=== PATIENT | female | born 2000 | race Caucasian/White ===

== ENCOUNTER 2019-11-24 07:33 | Emergency (ER) | payer OTHER, SELFPAY ==
--- NOTE | ~2019-11-24 | CT_ITS ---
EXAMINATION: CT abdomen pelvis wo con DATE: 11/24/2019 08:02 INDICATION: Right flank pain TECHNIQUE: Computed tomography (CT) of the abdomen and pelvis was performed without intravenous contr ast. The dose-length product (DLP) was 171.66 mGy-cm. Automated exposure control and iterative recons truction technique were employed. COMPARISON: None FINDINGS: The lung bases are clear. The heart size is normal. The liver, spleen, pancreas, gallbladde r, and adrenal glands are normal. There is a 3 mm nonobstructing stone of the left kidney. There is m ild right hydroureteronephrosis. The right ureter is difficult to track due to a possibility of abdom inal fat however, a 3 mm calcification of the right pelvis appears to reside within the distal ureter just before the ureterovesicular junction. No pathologically enlarged abdominal or pelvic lymph node s are identified. There is no free intraperitoneal gas or evidence of bowel obstruction. The visualiz ed osseous structures are unremarkable. IMPRESSION: 1. Mild right hydroureteronephrosis with suspected 3 mm stone in the distal right ureter. 2. Nonobstructing left nephrolithiasis. Reviewed, dictated and finalized at location B. IMPRESSION: 1. Mild right hydroureteronephrosis with suspected 3 mm stone in the distal rig ht ureter. 2. Nonobstructing left nephrolithiasis.
--- NOTE | 2019-11-24 07:38 | ED.ABDPAIN ---
HPI - Abdominal Pain General Chief Complaint: Abdominal Pain Stated Complaint: flank pain Time Seen by Provider: 11/24/19 07:35 History of Present Illness HPI narrative: RLQ and right flank pain since yesterday. Severe. Worse with movement. Associated with vomiting x1. She has never had this pain before. Related Data Allergies Allergy/AdvReac Type Severity Reaction Status Date / Time No Known Allergies Allergy Verified 11/24/19 07:46 Review of Systems Review of Systems: All systems reviewed & are unremarkable except as noted in HPI and below Constitutional: Constitutional: Denies chills and Denies fever(s) Cardiovascular: Cardiovascular: Denies chest pain Respiratory: Respiratory: Denies dyspnea Gastrointestinal: Gastrointestinal: Reports abdominal pain, Denies constipation, Denies diarrhea, Reports nausea and Reports vomiting Genitourinary: Genitourinary: Denies hematuria and Denies dysuria [facility] Family History Family History Mother Depression Sibling Allergies Grandparent CHF (congestive heart failure) Colon cancer Grandparent IBS (irritable bowel syndrome) Migraine Social History Social History (Updated 11/24/19 @ 10:44 by Dale lE MD) Smoking status: Never smoker Exam Const: General: healthy appearing and alert Orientation/consciousness: patient oriented x3 Other: mild distress HENMT: Head: normal to inspection Neck: Neck: normal visual inspection and no lymphadenopathy Chest: Chest palpation & inspection: no tenderness Resp: Effort & Inspection: normal respiratory effort Auscultation: clear to auscultation bilaterally, no rales, no rhonchi and no wheezes Cardio: Jugular venous distension: no JVD Rate: regular rate Rhythm: regular rhythm Heart sounds: no murmurs GI: Inspection: non-distended GI Palp: Yes Soft to palpation and No Tenderness to palpation present (GI) Skin: General skin exam: normal color Neuro: General: patient oriented x3 and moves all extremities Speech: normal speech Extrem: General: no edema Psych: Appearance: well kempt Affect: normal affect Course Vital Signs Vital signs: Vital Signs Temperature 36.6 C 11/24/19 07:42 Pulse Rate 78 11/24/19 07:42 Respiratory Rate 18 11/24/19 07:42 Blood Pressure 123/92 H 11/24/19 07:42 Pulse Oximetry 99 11/24/19 07:42 Temperature 36.6 C 11/24/19 07:42 Pulse Rate 78 11/24/19 09:33 Respiratory Rate 18 11/24/19 09:33 Blood Pressure 126/73 11/24/19 09:33 Pulse Oximetry 100 11/24/19 09:33 MDM - Abdominal Pain MDM Narrative Medical decision making narrative: small distal stone with mild hydro. Will plan to discharge with pain medications. Differential Diagnosis Differential diagnosis: Likely acute appendicitis, calculus of kidney and constipation Medical Records Attestation: I reviewed the patient's medical records. Lab Data Attestation: I reviewed the patient's lab results. Result diagrams: 11/24/19 07:47 11/24/19 07:47 Labs: Lab Results 11/24/19 11/24/19 11/24/19 Range/Units 07:47 07:47 07:47 WBC 9.4 (4.5-10.0) K/mm3 RBC 4.78 (4.2-5.4) M/mm3 Hgb 13.1 (12.0-15.0) g/dL Hct 41.2 (37.0-47.0) % MCV 86.2 (80-100) fl MCH 27.4 (26-34) pg MCHC 31.8 L (32-36) g/dl RDW 13.6 (11.5-14.5) % Plt Count 312 (150-375) k/mm3 MPV 10.3 (7.4-10.4) fl Immature Gran % (Auto) 0.2 (0-0.5) % Neut % (Auto) 47.6 (45.5-73.1) % Lymph % (Auto) 44.7 H (18.3-44.2) % Falls % (Auto) 5.7 (2.6-8.5) % Eos % (Auto) 1.4 (0-4.4) % Baso % (Auto) 0.4 (0.2-1.2) % Lymph # (Auto) 4.19 H (0.9-3.2) K/mm3 Falls # (Auto) 0.5 (0.1-0.6) K/mm3 Eos # (Auto) 0.1 (0-0.3) K/mm3 Baso # (Auto) 0.0 (0.0-0.1) K/mm3 Abs Immat Gran (auto) 0.02 (0.00-0.031) K/mm3 Absolute Neuts (auto) 4.5 (1.3-6.7) K/mm3 Absolute Nucle
[2019-11-24 07:42] VITALS: BP 123/92; PULSE 78; RESP 18; TEMP 36.6; O2SAT 99
[2019-11-24 07:54] LABS: Basophils Percent Auto 0.4 % (0.2-1.2); Eosinophils Absolute Auto 0.1 K/mm3 (0-0.3); Eosinophils Percent Auto 1.4 % (0-4.4); Hematocrit 41.2 % (37.0-47.0); Hemoglobin 13.1 g/dL (12.0-15.0); Immature Granulocyte Absolute 0.02 K/mm3 (0.00-0.031); Immature Granulocyte Percent A 0.2 % (0-0.5); Lymphocytes Absolute Auto 4.19 K/mm3 (0.9-3.2); Lymphocytes Percent Auto 44.7 % (18.3-44.2); Mean Corpuscular HGB Conc 31.8 g/dl (32-36); Mean Corpuscular Hemoglobin 27.4 pg (26-34); Mean Corpuscular Volume 86.2 fl (80-100); Mean Platelet Volume 10.3 fl (7.4-10.4); Monocytes Absolute Auto 0.5 K/mm3 (0.1-0.6); Monocytes Percent Auto 5.7 % (2.6-8.5); Neutrophils Absolute Auto 4.5 K/mm3 (1.3-6.7); Neutrophils Percent Auto 47.6 % (45.5-73.1); Platelet Count Result 312 k/mm3 (150-375); Red Blood Count 4.78 M/mm3 (4.2-5.4); Red Cell Distribution Width 13.6 % (11.5-14.5); White Blood Count 9.4 K/mm3 (4.5-10.0)
[2019-11-24 08:00] LABS: Add Urine Microscopic? YES; Appearance Urine Cloudy (Clear); Bacteria Urine Trace /hpf; Bilirubin Urine Negative (Negative); Blood Urine 3+ (Negative); Color Urine Yellow (Yellow); Glucose Urine UA Negative (Negative); Ketones Urine Negative (Negative); Leukocyte Esterase Ur Negative LEU/UL (Negative); Mucus Urine Heavy /lpf; Nitrate Urine Negative (Negative); Protein Urine 1+ mg/dL (Negative); RBC Urine >75 /hpf (0-2); Specific Grav Ur 1.024 (1.001-1.035); Squamous Epithelial Cell Urine Many /hpf (Few); Urobilinogen Urine Negative mg/dL (<2.0); WBC Urine 31-50 /hpf
[2019-11-24 08:06] LABS: Alanine Aminotransferase 16 U/L (4-35); Albumin Level 4.6 g/dL (3.5-5.1); Alkaline Phosphatase 74 U/L (38-126); Anion Gap 12.8 mmol/L (7-16); Aspartate Amino Transferase 22 U/L (14-36); Bilirubin,Total 0.7 mg/dL (0.2-1.3); Blood Urea Nitrogen 14 mg/dL (7-17); Calcium 9.4 mg/dL (8.4-10.2); Carbon Dioxide 24 mmol/L (22-30); Chloride 105 mmol/L (98-107); Estimated CRCL calculation 83 ml/min; Estimated Glomerular Filt Rate > 60; Glucose 124 mg/dL (65-105); Lipase 37 U/L (23-300); Potassium 3.8 mmol/L (3.4-5.0); Sodium 138 mmol/L (137-145)
[2019-11-24] MEDS: SODIUM CHLORIDE 0.9% IV 1,000 ML 999 ML IV CONT (08:12)
[2019-11-24] MEDS: KETOROLAC 30 MG/ML VIAL (*BKC) IV PUSH (08:12)
[2019-11-24] MEDS: TAMSULOSIN HCL 0.4 MG CAPSULE PO (08:23)
[2019-11-24 09:33] VITALS: BP 126/73; PULSE 78; RESP 18; O2SAT 100
== END 2019-11-24 09:34 | disposition home or self-care (01) ==
PROVIDERS: Emergency Provider Emergency Medicine; PCP Internal Medicine
DX: N13.2 Hydronephrosis with renal and ureteral calculous obstruction (principal)
CPT/HCPCS: 36415; 74176; 80053; 81001; 81025; 83690; 85025; 87086; 96361; 96374; 96375; 99284; A9270; J1885; J3010; J7030

== ENCOUNTER 2021-09-27 09:55 | Emergency (ER) | payer BC, SELFPAY ==
[2021-09-27 10:11] VITALS: BP 102/58; PULSE 109; RESP 18; TEMP 37.3; O2SAT 99
[2021-09-27 12:23] LABS: SARS-CoV-2 RNA PCR Negative
[2021-09-27 13:12] LABS: Monoscreen Negative (Negative); Positive Monotest Control Positive (Positive)
[2021-09-27 13:13] LABS: Negative Monotest Control Negative (Negative)
[2021-09-27] MEDS: DEXAMETHASONE 2 MG TABLET 6 MG PO (13:53)
[2021-09-27] MEDS: DEXAMETHASONE 4 MG TABLET PO (13:53)
--- NOTE | 2021-09-27 18:12 | ED.URI ---
HPI - URI/Sore Throat General Chief Complaint: Upper Respiratory Infection Stated Complaint: Fever Time Seen by Provider: 09/27/21 11:36 Source: patient Mode of arrival: ambulatory Limitations: no limitations History of Present Illness HPI Narrative: 20-year-old female presents today with complaints of headache, sore throat, and fevers at home that started 4 days ago Patient recently seen urgent care and given Augmentin for an ear infection. Patient states she has noted no improvement in her symptoms at this time. Patient has concerns that she is diagnosed with pharyngitis about a month ago and was worried she had it again. Related Data Allergies Allergy/AdvReac Type Severity Reaction Status Date / Time No Known Allergies Allergy Verified 11/24/19 07:46 Review of Systems Constitutional: Constitutional: Reports as per HPI Eyes: Eyes: Reports no additional eye complaints ENT: Reports as per HPI Cardiovascular: Cardiovascular: Reports no additional cardiovascular complaints Respiratory: Respiratory: Reports no additional respiratory complaints Gastrointestinal: Gastrointestinal: Reports no additional gastrointestinal complaints Genitourinary: Genitourinary: Reports no additional female genitourinary complaints Musculoskeletal: Musculoskeletal: Reports no additional musculoskeletal complaints Neurologic: Reports system reviewed and no additional complaints, except as documented Psychiatric: Psychiatric: Reports no additional psychiatric complaints Allergic/Immunologic: Allergic/Immunologic: Reports no additional allergic/immunologic complaints [facility] Family History Family History Mother Depression Sibling Allergies Grandparent CHF (congestive heart failure) Colon cancer Grandparent IBS (irritable bowel syndrome) Migraine Social History Social History Smoking status: Never smoker Exam Const: General: healthy appearing and no acute distress Nutritional Appearance: well nourished Orientation/consciousness: patient oriented x3 Limitations: no limitations HENMT: Head: normal to inspection Ears: external ears normal and TM's normal bilaterally General nose exam: Normal external nose present and Normal nares present Face and sinus: normal facial exam Mouth: Yes Normal oral and palatal mucosa present and Yes Abnormal oral and palatal mucosa present Throat: posterior oropharynx abnormal (Posterior oropharynx with erythema, tonsils +2-3 with exudate) and uvula midline Eyes: Conjunctivae: conjunctivae normal Pupils: Equal, round and reactive pupils present EOM: EOMs intact bilaterally Neck: Neck: normal visual inspection and no lymphadenopathy Chest: Chest palpation & inspection: normal inspection of the chest Resp: Effort & Inspection: normal respiratory effort Auscultation: clear to auscultation bilaterally Cardio: Rate: regular rate Rhythm: regular rhythm GI: GI Palp: Yes Soft to palpation and No Tenderness to palpation present (GI) Auscultation: normal bowel sounds Course Vital Signs Vital signs: Vital Signs Temperature 37.3 C 09/27/21 10:11 Pulse Rate 109 H 09/27/21 10:11 Respiratory Rate 18 09/27/21 10:11 Blood Pressure 102/58 L 09/27/21 10:11 Pulse Oximetry 99 09/27/21 10:11 Temperature 37.3 C 09/27/21 10:11 Pulse Rate 109 H 09/27/21 10:11 Respiratory Rate 18 09/27/21 10:11 Blood Pressure 102/58 L 09/27/21 10:11 Pulse Oximetry 99 09/27/21 10:11 MDM - URI/Sore Throat MDM Narrative Medical decision making narrative: 20-year-old HPI as noted. Patient with symptoms for 3 to 4 days. Patient has been on Augmentin for 2 days. Strep negative, influenza negative, COVID negative, and mono negative. Suspect viral pharyngitis. Instructed patient it is okay to continue antibiotics. Dose of oral steroids given here and patient instructed
== END 2021-09-27 13:55 | disposition home or self-care (01) ==
PROVIDERS: Emergency Provider Nurse Practitioner Family; PCP Family Medicine
DX: B34.9 Viral infection, unspecified (principal); Z20.822 Contact with and (suspected) exposure to COVID-19
CPT/HCPCS: 36415; 86308; 87081; 87804; 87880; 99283; C9803; J8540; U0003; U0005

== ENCOUNTER 2024-04-17 08:46 | Outpatient (CLI) | payer BC, SELFPAY ==
[2024-04-17 09:16] LABS: Alanine Aminotransferase 16 U/L (6-35); Aspartate Amino Transferase 26 U/L (14-36)
--- OUTSIDE RECORDS SUMMARY | 2024-04-24 21:42 | XMS_ITS | Encounter Summary ---
Author Organization [facility] Address [address] [place] [address]. [place] [address] [place] [address] Care Team Providers Care Five Piece Expansion Maker Hand Name Role Phone None, Provider Primary Care Provider Unavaila ble Reason for Visit * Reason Onset Date Comments ER F/U 11/29/2019 Encounter Details Date Type Department Care Team (Late st Contact Info) Description 11/29/2019 Telephone [facility] Medical [facility] Multispecialty Care - [facility] [address] [facility], [address] [place] [address] Pool Campbell MD [address] [place] [address] MCKENZIE JACKSON [id number] ER F/U Social History Tobacco Use Types Packs/Day Years Used Date Smoking Tobacco: Never Smokeless Tobacco: Never Alcohol Use Standard Drinks/Week Comments Never 0 (1 standard drink = 0.6 oz pur e alcohol) AUDIT-C Answer Date Recorded Frequency of Alcohol Consumption Never 11/26/2019 Average Number of Drinks Not on file 020 Frequency of Binge Drinking Not on file 05/2019 Comments No Sex and Gender Information Value Date Recorded Sex Assigned at Not on file Legal Sex Female 6:13 PM CDT Gender Identity Not on file Sexual Orientation Not on file COVID-19 Exposure Response Date Recorded In the last month, have you been in contact with someone who was confirmed or suspected to have Coronavirus / COVID-19? No / Unsure 11/26/2019 6:14 PM CDT documented as of this encounter Progress Notes * Kasie Mcadams MA - 11/29/2019 3:30 PM CDT The patient can see any provider that has first availability * Nandini Skinner - 11/29/2019 2:13 PM CDT Pt seen in ER 8-2 for kidney stone. Her mom is calling to see if pt needs to make f/u appt? She said pt is feeling better but isnt sureif she actually passed the stone. documented in this encounter Plan of Treatment Not on file documented as of this encounter Visit Diagnoses Not on filedocumented in this encounter Care Teams Five Piece Expansion Maker Hand Relationship Specialty Start Date End Date None, Provider, PCP - General 11/26/19 01/12/21 documented as of this encounter
--- OUTSIDE RECORDS SUMMARY | 2024-04-24 21:42 | XMS_ITS | Encounter Summary ---
Author Organization [facility] Address [address] [place] [address]. [place] [address] [place] [address] Care Team Providers Care Financial Sales Assistant Name Role Phone None, Provider Primary Care Provider Unavaila ble Reason for Visit * Reason Onset Date Comments Appointment Reminder 12/04/2019 Encounter Details Date Type Department Care Team (Late st Contact Info) Description 12/04/2019 Telephone [facility] Medical [facility] Multispecialty Care - [facility] [address] [facility], [address] [place] [address] Judith Kearney, APNP [id number] [address] Appointment Reminder Social History Tobacco Use Types Packs/Day Years [...] as of this encounter Progress Notes * Evy Tejeda MA - 12/04/2019 2:21 PM CDT LVM with patient regarding appt to reschedule or continue with appt. documented in this encounter Plan of Treatment Not on file documented as of this encounter Visit Diagnoses Not on filedocumented in this encounter Care Teams Financial Sales Assistant Relationship Specialty Start Date End Date None, Provider, PCP - General 11/26/19 01/12/21 documented as of this encounter
--- OUTSIDE RECORDS SUMMARY | 2024-04-24 21:42 | XMS_ITS | Encounter Summary ---
Author Organization [facility] Address [address] [place] [address]. [place] [address] [place] [address] Care Team Providers Care Electronic Coils Supervisor Name Role Phone None, Provider Primary Care Provider Unavaila ble Reason for Referral * Imaging (Emergency) - Closed Specialty Diagnoses / Procedures Referred By Rosalva t Referred To Contact RADIOLOGY Procedures CT ABD+PEL WO CON Regina Lanier MD [address] [address] Phone: tel: fax: Referral ID Status Reason Start Date Expiration Date Visits Re quested Visits Authorized [id number] Closed 11/26/2019 12/26/2020 1 1 Reason for Visit * Reason Comments Flank Pain Encounter Details Date Type Department Care Team (Late st Contact Info) Description 11/26/2019 7:57 PM CDT - 11/26/2019 11:[address] [facility] [place] [address] Regina Lanier MD [address] [id number] Flank Pain Discharge Disposition: Home or Self Care (Routine Discharge) Social History Tobacco Use Types Packs/Day Years Used Date Smoking Tobacco: Never Smokeless Tobacco: Never Alcohol Use Standard Drinks/Week Comments Never 0 (1 standard drink = 0.6 oz pur e alcohol) AUDIT-C Answer Date Recorded Frequency of Alcohol Consumption Never 11/26/2019 Average Number of Drinks Not on file 08/02/2 020 Frequency of Binge Drinking Not on [...] PM CDT documented as of this encounter Last Filed Vital Signs Vital Sign Reading Time Taken Comments Blood Pressure 113/75 11/26/2019 11:26 PM CDT Pulse 69 11/26/2019 11:26 PM CDT Temperature 36.3 ??C (97.4 ??F) 11/26/2019 6:29 PM CD T Respiratory Rate 14 11/26/2019 11:26 PM CDT Oxygen Saturation 97% 11/26/2019 11:26 PM CDT Inhaled Oxygen Concentration - - Weight 47.6 kg (105 lb) 11/26/2019 6:29 PM CDT Height 157.5 cm (5' 2 ) 11/26/2019 6:29 PM CDT Body Mass Index 19.2 11/26/2019 6:29 PM CDT documented in this encounter Discharge Instructions * Discharge Instructions* Regina Lanier MD - 11/26/2019 11:04 PM CDT Strain your urine to see if your stone passes. Return to ER if your pain is uncontrolled or you develop fever. * Attachments The following attachments cannot be sent through Care Everywhere. * Renal Colic Discharge Instructions ([place]) * How to Strain Your Urine ([place]) documented in this encounter Medications at Time of Discharge ketorolac 10 MG tablet Take 1 tablet (10 mg total) by mouth 4 (four) times daily as needed for Pain. 16 tablet 11/26/2019 0 ondansetron (ZOFRAN ODT) 4 MG disintegrating tablet Take 1 tablet (4 mg total) by mouth every 8 (eight) hours as needed for Nausea. 15 tablet 11/26/2019 1 documented as of this encounter ED Notes * Salome Solis RN - 11/26/2019 9:11 PM CDT Patient medicated for pain, patient is resting and stated that she had minimal relief with the morphine, call light is within reach, patient denies other needs at this time, will continue to monitor patient * Regina Lanier MD - 11/26/2019 8:39 PM CDT Emergency Department Note Chief Complaint Chief Complaint Patient presents with ??? Flank Pain History of Present Illness This is a 18-year-old female who has no significant past medical history who presents to the emergency department complaining of right flank and right lower quadrant pain since . She states that she went to [facility] and was told she had a kidney stone. She was given pain medicationand Flomax. She states the pain medication is no longer helping and she is now also having pain to her left flank and left lower quadrant. She has had associated nausea and vomiting. No fevers. No prior history of kidney stones. Medical History ALLERGIES: No Known Allergies MEDICATIONS: Prior to Admission medications Medication Sig Start Date End Date Taking? Authorizing Provider ketorolac 10 MG tablet Take 1 tablet (10 mg total) by mouth 4 (four) times daily as needed for Pain. 11/26/19 12/01/19 Yes Regina Lanier MD ondansetron (ZOFRAN ODT) 4 MG disintegrating tablet Take 1 tablet (4 mg total) by mouth every 8 (eight) hours as needed for Nausea. 11/26/19 Yes Regina Lanier MD PAST MEDICAL HISTORY: Past Medical History: Diagnosis Date ??? Kidney stone PAST SURGICAL HISTORY: History reviewed. No pertinent surgical history. FAMILY HISTORY: No family history on file. SOCIAL HISTORY: Social History Tobacco Use ??? Smoking status: Never Smoker ??? Smokeless tobacco: Never Used Substance Use Topics ??? Alcohol use: Never Frequency: Never ??? Drug use: Never Review of Systems Review of Systems Constitutional: Negative for chills and fever. HENT: Negative for sore throat. Eyes: Negative for pain. Respiratory: Negative for cough and shortness of breath. Cardiovascular: Negative for chest pain. Gastrointestinal: Positive for abdominal pain, nausea and vomiting. Negative for diarrhea. Endocrine: Negative for polyuria. Genitourinary: Positive for flank pain. Negative for dysuria. Skin: Negative for rash. Neurological: Negative for dizziness and headaches. Psychiatric/Behavioral: Negative for behavioral problems. Physical Exam Filed Vitals: 11/26/19 1829 11/26/19 2019 11/26/19 2100 11/26/19 2200 BP: (!) 132/95 123/84 123/84 116/81 Pulse: 92 69 74 Resp: 20 16 Temp: 97.4 ??F (36.3 ??C) TempSrc: Temporal SpO2: 99% 99% 97% 98% Weight: 47.6 kg (105 lb) Height: 5' 2 (1.575 m) Physical Exam Constitutional: She is oriented to person, place, and time. She appears well- developed and well-nourished. HENT: Head: Normocephalic and atraumatic. Eyes: Conjunctivae and EOM are normal. Neck: Neck supple. Cardiovascular: Normal rate and regular rhythm. Pulmonary/Chest: Effort normal and breath sounds normal. No stridor. Abdominal: Soft. Bowel sounds are normal. There is no tenderness. Musculoskeletal: She exhibits no deformity. Neurological: She is alert and oriented to person, place, and time. Skin: Skin is warm and dry. Psychiatric: She has a normal mood and affect. Nursing note and vitals reviewed. Diagnostic Studies / Procedures ELECTROCARDIOGRAMS: No results found for this visit on 11/26/19. LABORATORY STUDIES: Results for orders placed or performed during the hospital encounter of 11/26/19 URINALYSIS Result Value Ref Range Specimen Type URINE CLEAN CATCH COLOR (U) LIGHT YELLOW TRANSPARENCY CLEAR Specific [place]amond (U) 1.027 1.001 - 1.030 U PH 5.0 5.0 - 9.0 LEUKOCYTE ESTERASE NEGATIVE NEGATIVE NITRITES NEGATIVE NEGATIVE PROTEIN (U) 10 <30 MG/DL URINE GLUCOSE NORMAL NORMAL MG/DL U KETONES >150 (A) NEGATIVE MG/DL UROBILINOGEN NORMAL NORMAL MG/DL BILIRUBIN (U) NEGATIVE NEGATIVE MG/DL BLOOD 2+ (A) NEGATIVE CULTURE & SENSITIVITY INDICATED? CULTURE IS NOT INDICATED MUCUS RARE /LPF WBC/HPF 1 <6 /HPF RBC/HPF 2 <6 /HPF SQUAMOUS EPITHELIALS FEW /HPF CBC W/DIFF AUTOMATED Result Value Ref Range WBC 14.1 (H) 4.5 - 13.0 x10'3/uL RBC 4.49 4.20 - 5.40 x10'6/uL HGB 12.4 12.0 - 16.0 G/DL HCT 38.4 38.0 - 48.0 % MCV 85.5 80.0 - 94.0 FL MCH 27.6 27.0 - 31.0 PG MCHC 32.3 32.0 - 36.0 G/DL RDW 12.8 11.5 - 14.5 % PLT 264 130 - 400 x10'3/uL MPV 10.3 9.3 - 12.2 FL DIFFERENTIAL TYPE AUTOMATED DIFFERENTIAL NEUTROPHILS 84.2 % LYMPHOCYTES 8.8 % MONOCYTES 6.3 % EOSINOPHILS 0.1 % BASOPHILS 0.2 % IMMATURE GRANS 0.4 % ABS. NEUTROPHILS TOTAL 11.85 (H) 1.80 - 8.00 x10'3/uL ABS. LYMPHOCYTES 1.24 1.20 - 5.20 x10'3/uL ABS. MONOCYTES 0.89 (H) 0.24 - 0.86 x10'3/uL ABS. EOSINOPHILS 0.01 (L) 0.04 - 0.36 x10'3/uL ABS. BASOPHILS 0.03 0.01 - 0.08 x10'3/uL ABS. IMMATURE GRANULOCYTES 0.06 0.00 - 0.49 x10'3/uL COMPREHENSIVE METABOLIC PANEL Result Value Ref Range GLUCOSE 96 70 - 99 MG/DL BUN 12 7 - 18 MG/DL CREATININE S/P/B 1.08 (H) 0.55 - 1.02 MG/DL SODIUM 131 (L) 136 - 145 MMOL/L POTASSIUM 4.1 3.5 - 5.1 MMOL/L CHLORIDE S/P/B 101 100 - 108 MMOL/L CO2 21.4 21 - 32 MMOL/L CALCIUM 9.1 8.5 - 10.1 MG/DL BILIRUBIN TOTAL S/P/B 1.1 0.2 - 1.2 MG/DL TOTAL PROTEIN S/P/B 8.3 (H) 6.4 - 8.2 G/DL ALBUMIN S/P/B 4.2 3.4 - 5.0 G/DL AST 17 15 - 37 U/L ALT 17 14 - 55 U/L ALKALINE PHOSPHATASE S/P/B 71 50 - 136 U/L ANION GAP 8.6 5 - 15 MMOL/L BUN CREATININE RATIO 11.1 6 - 26 A/G RATIO 1.0 1.0 - 2.0 RATIO eGFR Non-Afr. Amer. 74 (L) >90 ML/MIN/1.73 M2 eGFR Afr. Amer. 86 (L) >90 ML/MIN/1.73 M2 POCT urine Result Value Ref Range URINE HCG TEST negative NEGATIVE Internal Control performed as Expected? yes VALID IMAGING STUDIES CT ABD+PEL WO CON Final Result by User, [email or web address] (11/25 2201) Date: 11/26/2019 8:50 PM Exam: CT ABD+PEL WO CON Comparison: No comparisons. Technique: Thin section images were obtained of the abdomen and pelvis without oral nor IV contrast. Coronal and sagittal reconstructions. A dose lowering technique was used for this procedure, which may include, but is not limited to, dose reduction technique, automated exposure control, the use of iterative reconstruction, and ALARA (As Low As Reasonably Achievable)/ Image gently techniques. History: Right flank pain. Kidney stones. Findings: Visualized lower chest: There are no consolidations nor effusions. The visualized inferior heart is normal in size. Abdomen and pelvis: There is mild to moderate hydronephrosis in the right kidney. There is right hydroureter. There is a 3 mm calculus at the right ureterovesical junction. There is a 2 mm nonobstructing calculus in the mid left kidney. There is no hydronephrosis in the left kidney. The urinary bladder is underdistended and inadequately evaluated. The liver, gallbladder, spleen, pancreas, adrenal glands appear normal. The abdominal aorta, IVC appear normal. There is no bowel obstruction nor acute intestinal abnormality. The appendix is suboptimally visualized. There is no inflammation, free fluid nor free air. Osseous structures: The osseous structures appear normal. Impression: 1. There is a 3 mm calculus at the right ureterovesical junction causing right hydroureter and right hydronephrosis. 2. Nonobstructing 2 mm calculus in the mid left kidney. 3. No acute inflammatory abnormality. No bowel obstruction. Interpreted By: Tom Talley MD, 11/26/2019 9:57 PM ED Course / Medical Decision Making ED Course as of Nov 26 2303 Sun Nov 26, 20192299 Pt feels better after morphine and toradol. She feels comfortable going home. CT shows stone is at UVJ. She has hydrocodone and flomax at home. Will send home with toradol and zofran in addition. Will refer to urology as outpt. [] ED Course User Index [] Regina Lanier MD Medications morphine injection 4 mg (has no administration in time range) morphine injection 4 mg (4 mg Intravenous Given 11/26/192019) ondansetron (ZOFRAN) injection 4 mg (4 mg Intravenous Given 11/26/192019) ketorolac (TORADOL) injection 15 mg (15 mg Intravenous Given 11/26/192107) sodium chloride 0.9% bolus infusion SOLN 1,000 mL (1,000 mLs Intravenous New Bag 11/26/192148) Clinical Impression Ureterolithiasis (Primary) Current Discharge Medication List START taking these medications Details ketorolac 10 MG tablet Take 1 tablet (10 mg total) by mouth 4 (four) times daily as needed for Pain. Qty: 16 tablet, Refills: 0 Class: Print ondansetron (ZOFRAN ODT) 4 MG disintegrating tablet Take 1 tablet (4 mg total) by mouth every 8 (eight) hours as needed for Nausea. Qty: 15 tablet, Refills: 0 Class: Print Disposition: Discharge Follow-Up: Pool Campbell MD [address] [place] [address] In 3 days Regina Lanier MD 11/26/2019 Regina Lanier MD 11/26/192304 * Salome Solis RN - 11/26/2019 8:26 PM CDT Patient medicated for pain, call light is within reach, will continue to monitor patient * Salome Solis RN - 11/26/2019 8:10 PM CDT Spoke with Dr. Almanzar about patient being in pain, verbal order given for morphine 4mg IVP and zofran 4mg IVP * Kasie Hurtado RN - 11/26/2019 6:28 PM CDT Patient ambulatory to triage with flank pain. Patient was told Wednesday that she has 2 kidney stones-both small enough to pass. However, patient is still experiencing severe pain in right flank. documented in this encounter Plan of Treatment Not on file documented as of this encounter Procedures Procedure Name Priority Date/Time Associated Diagnosis Comments CT ABD+PEL WO CON STAT 11/26/2019 9:0 3 PM CDT HC URINALYSIS AUTO W/O MICRO STAT 11/26/2019 8:08 PM CDT COMPREHENSIVE METABOLIC PANEL STAT 11/26/2019 8:08 PM CDT CBC W/DIFF AUTOMATED STAT 11/26/2019 8:08 PM CDT POCT URINE (BACK OFFICE) STAT 11/26/2019 8:06 PM CDT documented in this encounter Results * CT ABD+PEL WO CON (11/26/2019 9:03 PM CDT) Anatomical Region Laterality Modality Abdomen Computed Tomogra phy 11/26/2019 9:57 PM CDT Impressions 11/26/2019 10:01 PM CDT Impression: 1. ??There is a 3 mm calculus at the right ureterovesical junction causing right hydroureter and right hydronephrosis. 2. ??Nonobstructing 2 mm calculus in the mid left kidney. 3. ??No acute inflammatory abnormality. ??No bowel obstruction. Interpreted By: Tom Talley MD, 11/26/2019 9:57 PM Narrative 11/26/2019 10:01 PM CDT Date: 11/26/2019 8:50 PM Exam: CT ABD+PEL WO CON Comparison: No comparisons. Technique: Thin section images were obtained of the abdomen and pelvis without oral nor IV contrast. ??Coronal and sagittal reconstructions. ??A dose lowering technique was used for this procedure, which may include, but is not limited to, dose reduction technique, automated exposure control, the use of iterative reconstruction, and ALARA (As Low As Reasonably Achievable)/ Image gently techniques. History: Right flank pain. ??Kidney stones. Findings: Visualized lower chest: There are no consolidations nor effusions. ??The visualized inferior heart is normal in size. Abdomen and pelvis: There is mild to moderate hydronephrosis in the right kidney. ??There is right hydroureter. ??There is a 3 mm calculus at the right ureterovesical junction. ??There is a 2 mm nonobstructing calculus in the mid left kidney. ??There is no hydronephrosis in the left kidney. ??The urinary bladder is underdistended and inadequately evaluated. The liver, gallbladder, spleen, pancreas, adrenal glands appear normal. ??The abdominal aorta, IVC appear normal. ??There is no bowel obstruction nor acute intestinal abnormality. ??The appendix is suboptimally visualized. ??There is no inflammation, free fluid nor free air. Osseous structures: The osseous structures appear normal. Procedure Note Tom Talley MD - 11/26/2019 Date: 11/26/2019 8:50 PM Exam: CT ABD+PEL WO CON Comparison: No comparisons. Technique: Thin section images were obtained of the abdomen and pelviswithout oral nor IV contrast. Coronal and sagittal reconstructions. Adose lowering technique was used for this procedure, which may include,but is not limited to, dose reduction technique, automated exposurecontrol, the use of iterative reconstruction, and ALARA (As Low AsReasonably Achievable)/ Image gently techniques. History: Right flank pain. Kidney stones. Findings: Visualized lower chest: There are no consolidations nor effusions. Thevisualized inferior heart is normal in size. Abdomen and pelvis: There is mild to moderate hydronephrosis in the rightkidney. There is right hydroureter. There is a 3 mm calculus at theright ureterovesical junction. There is a 2 mm nonobstructing calculus inthe mid left kidney. There is no hydronephrosis in the left kidney. Theurinary bladder is underdistended and inadequately evaluated. The liver, gallbladder, spleen, pancreas, adrenal glands appear normal.The abdominal aorta, IVC appear normal. There is no bowel obstruction noracute intestinal abnormality. The appendix is suboptimally visualized.There is no inflammation, free fluid nor free air. Osseous structures: The osseous structures appear normal. Impression: 1. There is a 3 mm calculus at the right ureterovesical junction causingright hydroureter and right hydronephrosis. 2. Nonobstructing 2 mm calculus in the mid left kidney. 3. No acute inflammatory abnormality. No bowel obstruction. Interpreted By: Tom Talley MD, 11/26/2019 9:57 PM us Regina Lanier MD CT Final Result * (ABNORMAL) COMPREHENSIVE METABOLIC PANEL (11/26/2019 8:08 PM CDT) GLUCOSE 96 70 - 99 MG/DL 11/26/2019 8:47 PM CDT [facility] BUN 12 7 - 18 MG/DL 11/26/2019 8:47 PM CDT [facility] CREATININE S/P/B 1.08(H) 0.55 - 1.02 MG/DL 11/26/2019 8:47 PM CDT [facility] SODIUM S/P/B 131(L) 136 - 145 MMOL/L 11/26/2019 8:47 PM CDT [facility] POTASSIUM S/P/B 4.1 3.5 - 5.1 MMOL/L 11/26/2019 8:47 PM CDT [facility] CHLORIDE S/P/B 101 100 - 108 MMOL/L 11/26/2019 8:47 PM CDT [facility] CO2 21.4 21 - 32 MMOL/L 11/26/2019 8:47 PM T [facility] CALCIUM S/P/B 9.1 8.5 - 10.1 MG/DL 11/26/2019 8:47 PM CDT [facility] BILIRUBIN TOTAL S/P/B 1.1 0.2 - 1.2 MG/DL 11/26/2019 8:47 PM CDT [facility] Comment: THIS ASSAY IS NOT RECOMMENDED FOR PATIENTS UNDERGOING TREATMENT WITH ELTROMBOPAG DUE TO THE POTENTIAL FOR FALSELY ELEVATED RESULTS. TOTAL PROTEIN S/P/B 8.3(H) 6.4 - 8.2 G/DL 11/26/2019 8:47 PM T [facility] ALBUMIN S/P/B 4.2 3.4 - 5.0 G/DL 11/26/2019 8:47 PM CDT [facility] AST 17 15 - 37 U/L 11/26/2019 8:47 PM T [facility] ALT 17 14 - 55 U/L 11/26/2019 8:47 PM T [facility] ALKALINE PHOSPHATASE S/P/B 71 50 - 136 U/L 11/26/2019 8:47 PM T [facility] ANION GAP 8.6 5 - 15 MMOL/L 11/26/2019 8:47 PM T [facility] BUN CREATININE RATIO 11.1 6 - 26 11/26/2019 8:47 PM T [facility] A/G RATIO 1.0 1.0 - 2.0 RATIO 11/26/2019 8:47 PM T [facility] EGFR NON-AFR. AMER. 74(L) >90 ML/MIN/1.7 3 M2 11/26/2019 8:47 PM CDT [facility] EGFR AFR. AMER. 86(L) >90 ML/MIN/1.7 3 M2 11/26/2019 8:47 PM CDT [facility] Comment: NOTE: eGFR is not calculated for patients <18 years of age. This is an estimated GFR (CKD EPI) and should not be used for calculating drug doses. 11/26/2019 8:08 PM CDT us Regina Lanier MD LABORATORY Final Result [facility] [address] [place] [address], [place] [phone] * (ABNORMAL) CBC W/DIFF AUTOMATED (11/26/2019 8:08 PM CDT) WBC 14.1(H) 4.5 - 13.0 x10'3/uL 11/26/2019 8:28 PM CDT [facility] RBC 4.49 4.20 - 5.40 x10'6/uL 11/26/2019 8:28 PM CDT [facility] HGB 12.4 12.0 - 16.0 G/DL 11/26/2019 8:28 PM CDT [facility] HCT 38.4 38.0 - 48.0 % 11/26/2019 8:28 PM CDT [facility] MCV 85.5 80.0 - 94.0 FL 11/26/2019 8:28 PM CDT [facility] MCH 27.6 27.0 - 31.0 PG 11/26/2019 8:28 PM CDT [facility] MCHC 32.3 32.0 - 36.0 G/DL 11/26/2019 8:28 PM CDT [facility] RDW 12.8 11.5 - 14.5 % 11/26/2019 8:28 PM CDT [facility] PLT 264 130 - 400 x10'3/uL 11/26/2019 8:28 PM CDT [facility] MPV 10.3 9.3 - 12.2 FL 11/26/2019 8:28 PM CDT [facility] DIFFERENTIAL TYPE AUTOMATED DIFFERENTIAL 11/26/2019 8:28 PM CDT [facility] NEUTROPHILS % 84.2 % 11/26/2019 8:28 PM CDT [facility] LYMPHOCYTES % 8.8 % 11/26/2019 8:28 PM CDT [facility] MONOCYTES % 6.3 % 11/26/2019 8:28 PM CDT [facility] EOSINOPHILS 0.1 % 11/26/2019 8:28 PM CDT [facility] BASOPHILS 0.2 % 11/26/2019 8:28 PM CDT [facility] IMMATURE GRANS % 0.4 % 11/26/19 20 8:28 PM CDT [facility] ABS. NEUTROPHILS TOTAL 11.85(H) 1.80 - 8.00 x10'3/uL 11/26/2019 8:28 PM CDT [facility] ABS. LYMPHOCYTES 1.24 1.20 - 5.20 x10'3/uL 11/26/2019 8:28 PM CDT [facility] ABS. MONOCYTES 0.89(H) 0.24 - 0.86 x10'3/uL 11/26/2019 8:28 PM CDT [facility] ABS. EOSINOPHILS 0.01(L) 0.04 - 0.36 x10'3/uL 11/26/2019 8:28 PM CDT [facility] ABS. BASOPHILS 0.03 0.01 - 0.08 x10'3/uL 11/26/2019 8:28 PM CDT [facility] ABS. IMMATURE GRANULOCYTES 0.06 0.00 - 0.49 x10'3/uL 11/26/2019 8:28 PM CDT [facility] 11/26/2019 8:08 PM CDT us Regina Lanier MD LABORATORY Final Result [facility] [address] [place] [address], [place] [phone] * (ABNORMAL) URINALYSIS (11/26/2019 8:08 PM CDT) SPECIMEN TYPE URINE CLEAN CATCH 11/26/2019 8:01 PM CDT [facility] COLOR (U) LIGHT YELLOW 11/26/2019 8:33 PM CDT [facility] TRANSPARENCY CLEAR 11/26/2019 8:33 PM CDT [facility] SPECIFIC GRAVITY (U) 1.027 1.001 - 1.030 11/26/2019 8:33 PM CDT [facility] U PH 5.0 5.0 - 9.0 11/26/2019 8:33 PM CDT [facility] LEUKOCYTES (U) NEGATIVE NEGATIVE 11/26/2019 8:33 PM CDT [facility] NITRITES NEGATIVE NEGATIVE 11/26/2019 8:33 PM CDT [facility] PROTEIN (U) 10 <30 MG/DL 11/26/2019 8:33 PM CDT [facility] URINE GLUCOSE NORMAL NORMAL MG/DL 11/26/2019 8:33 PM CDT [facility] KETONES MG/DL (U) >150(A) NEGATIVE MG/DL 11/26/2019 8:33 PM CDT [facility] UROBILINOGEN NORMAL NORMAL MG/DL 11/26/2019 8:33 PM CDT [facility] BILIRUBIN (U) NEGATIVE NEGATIVE MG/DL 11/26/2019 8:33 PM CDT [facility] BLOOD (U) 2+(A) NEGATIVE 11/26/2019 8:33 PM CDT [facility] CULTURE & SENSITIVITY INDICATED? CULTURE IS NOT INDICATED 11/26/2019 8:33 PM CDT [facility] MUCUS RARE /LPF 11/26/2019 8:33 PM CDT [facility] WBC/HPF 1 <6 /HPF 11/26/2019 8:33 PM CDT [facility] RBC/HPF 2 <6 /HPF 11/26/2019 8:33 PM CDT [facility] SQUAMOUS EPITHELIALS FEW /HPF 11/26/2019 8:33 PM CDT [facility] URINE SPECIMEN OBTAINED BY CLEAN CATCH PROCEDURE / Unknown 11/26/2019 8:08 PM CDT Regina Lanier MD URINE ORDERABLES Final Result [facility] [address] [place] [address], [place] [phone] * POCT urine (11/26/2019 8:06 PM CDT) URINE HCG TEST negative NEGATIVE Internal Control performed as Expected? yes VALID Comment:lot [id number] exp 0 08/23/2020 Regina Lanier MD POINT OF CARE TEST ORDERABLES Final Result documented in this encounter Visit Diagnoses Diagnosis Ureterolithiasis- Primary Calculus of ureter documented in this encounter Administered Medications Inactive Administered Medications - up to 3 most recent administrations Medication Order MAR Action Action Date Dose Rate Site ketorolac (TORADOL) injection 15 mg 15 mg, Intravenous, Once, 1 dose, On 8/2/20 at 2044, For IV administration, give over 15 seconds. Given 11/26/2019 9:08 PM CDT 15 mg morphine injection 4 mg 4 mg, Intravenous, Once, 1 dose, On 11/26/19 at 2014 Given 11/26/2019 8:20 PM CDT 4 mg morphine injection 4 mg 4 mg, Intravenous, Once, 1 dose, On 11/26/19 at 2315 Given 11/26/2019 11:26 PM CDT 4 mg ondansetron (ZOFRAN) injection 4 mg 4 mg, Intravenous, Once, 1 dose, On 11/26/19 at 2015, IV push over 2-5 minutes. Given 11/26/2019 8:20 PM CDT 4 mg ondansetron (ZOFRAN) injection 4 mg 4 mg, Intravenous, Once, 1 dose, On 11/26/19 at 2330, IV push over 2-5 minutes. Given 11/26/2019 11:26 PM CDT 4 mg sodium chloride 0.9% bolus infusion SOLN 1,000 mL 1,000 mL, Intravenous, Administer over 15 Minutes, Once, 1 dose, On 11/26/19 at 2200 New Bag 11/26/2019 9:49 PM CDT 1,000 mLs documented in this encounter Active and Recently Administered Medications Times are shown in CDT. Scheduled Medication Order 11/24/2019 11/25/2019 11/26/2019 ketorolac (TORADOL) injection 15 mg (COMPLETED) 15 mg, Intravenous, Once, 1 dose, On 11/26/19 at 2044, For IV administration, give over 15 seconds. 2107 (Given - Provid er: Salome Solis RN) morphine injection 4 mg (COMPLETED) 4 mg, Intravenous, Once, 1 dose, On 11/26/19 at 2014 2019 (Given - Provid er: Salome Solis RN) morphine injection 4 mg (COMPLETED) 4 mg, Intravenous, Once, 1 dose, On 11/26/19 at 2315 232 (Given - Provid er: Salome Solis RN) ondansetron (ZOFRAN) injection 4 mg (COMPLETED) 4 mg, Intravenous, Once, 1 dose, On 11/26/19 at 2014, IV push over 2-5 minutes. 2019 (Given - Provid er: Salome Solis, NITIN) ondansetron (ZOFRAN) injection 4 mg (COMPLETED) 4 mg, Intravenous, Once, 1 dose, On 11/26/19 at 2330, IV push over 2-5 minutes. 2326 (Given - Provid er: Salome Solis RN) sodium chloride 0.9% bolus infusion SOLN 1,000 mL (COMPLETED) 1,000 mL, Intravenous, Administer over 15 Minutes, Once, 1 dose, On [place] 11/26/19 at 2200 2149 (New Bag - Prov ider: Salome Solis RN)2308 (Infusion Stop Time - Provider: Salome Solis RN) documented in this encounter Care Teams Electronic Coils Supervisor Relationship Specialty Start Date End Date None, Provider, PCP - General 11/26/19 01/12/21 documented as of this encounter
--- OUTSIDE RECORDS SUMMARY | 2024-04-24 21:42 | XMS_ITS | Patient Health Summary ---
Author Organization [facility] Address [address] [place] [address] Care Team Providers Care Packaging Clerk Name Role Phone Amna Wright MD Primary Care Provider [phone] Note from [facility],non-owned Affiliates and Associated Physician Practices is amultiple site organization consisting of ambulatory clinics and hospital sitesin [place], [place], [place] and [place]. This disclosure is being madepursuant to the Care Everywhere program and may not contain all information available regarding this patient. Last updated 18.[facility] Allergies No known active allergies Medications * Be aware that medications may not be up to date on this document. Alwaysverify current medications with the patient. * ARIPiprazole (Abilify) 5 MG tablet Take 5 mg by mouth at bedtime Active Problems Problem Noted Date Diagnosed Date Adjustment disorder 01/22/2017 Social History Tobacco Use Types Packs/Day Years Used Date Smoking Tobacco: Never Smokeless Tobacco: Never Alcohol Use Standard Drinks/Week Comments No 0 (1 standard drink = 0.6 oz pur e alcohol) Sex and Gender Information Value Date Recorded Sex Assigned at Not on file Gender Identity Not on file Sexual Orientation Not on file Last Filed Vital Signs Vital Sign Reading Time Taken Comments Blood Pressure 102/58 03/26/2017 3:54 PM DATA ANALYTICS ARCHITECT Pulse 76 03/26/2017 3:54 PM DATA ANALYTICS ARCHITECT Temperature 36.9 ??C (98.5 ??F) 03/26/2017 3:54 PM CS T Respiratory Rate 18 03/26/2017 3:54 PM DATA ANALYTICS ARCHITECT Oxygen Saturation - - Inhaled Oxygen Concentration - - Weight 48.3 kg (106 lb 6.4 oz) 03/26/2017 3:54 P M DATA ANALYTICS ARCHITECT Height 157.5 cm (5' 2 ) 03/26/2017 3:54 PM DATA ANALYTICS ARCHITECT Body Mass Index 19.46 03/26/2017 3:54 PM DATA ANALYTICS ARCHITECT Care Teams Packaging Clerk Relationship Specialty Start Date End Date Amna Wright MD [address] [place] [address] [place] [phone] PCP - General Family Medicine 01/15/22
--- OUTSIDE RECORDS SUMMARY | 2024-04-24 21:42 | XMS_ITS | Encounter Summary ---
Author Organization [facility] Address [address] [place] [address] Care Team Providers Care Echocardiologist Name Role Phone Amna Wright MD Primary Care Provider [phone] Encounter Details Date Type Department Care Team (Latest Contact Info) Description 01/15/2022 Travel Social History Tobacco Use Types Packs/Day Years Used Date Smoking Tobacco: Never Smokeless Tobacco: Never Alcohol Use Standard Drinks/Week Comments No 0 (1 standard drink = 0.6 oz pur e alcohol) Sex and Gender Information Value Date Recorded Sex Assigned at Not on file Gender Identity Not on file Sexual Orientation Not on file COVID-19 Exposure Response Date Recorded In the last 10 days, have yo u been in contact with someone who was confirmed or suspected to have Coronavirus/COVID-19? No / Unsure 01/15/2022 4:51 PM CDT documented as of this encounter Plan of Treatment Not on file documented as of this encounter Visit Diagnoses Not on filedocumented in this encounter Care Teams Echocardiologist Relationship Specialty Start Date End Date Amna Wright MD [address] [place] [address] [place] [phone] PCP - General Family Medicine 01/15/22 documented as of this encounter
--- OUTSIDE RECORDS SUMMARY | 2024-04-24 21:42 | XMS_ITS | Referral Summary ---
Author Organization [facility] Address [address] [place] [address] Care Team Providers Care Mri Assistant Name Role Phone Amna Wright MD Primary Care Provider [phone] Source Comments [facility],non-owned Affiliates and Associated Physician Practices is amultiple site organization consisting of ambulatory clinics and hospital sitesin [place], [place], [place] and [place]. This disclosure is being madepursuant to the Care Everywhere program and may not contain all information available regarding this patient. Last updated 18.[facility] Allergies No known active allergies Medications * Be aware that medications may not be up to date on this document. Alwaysverify current medications with the patient. Medication Sig Dispensed Refills Start Date End Date Status ARIPiprazole (Abilify) 5 MG tablet Take 5 mg by mouth at bedtime Active Active Problems Problem Noted Date Diagnosed Date [...] Comments Blood Pressure 102/58 03/26/2017 3:54 PM BOOTH USHER Pulse 76 03/26/2017 3:54 PM BOOTH USHER Temperature 36.9 ??C (98.5 ??F) 03/26/2017 3:54 PM CS T Respiratory Rate 18 03/26/2017 3:54 PM BOOTH USHER Oxygen Saturation - - Inhaled Oxygen Concentration - - Weight 48.3 kg (106 lb 6.4 oz) 03/26/2017 3:54 P M BOOTH USHER Height 157.5 cm (5' 2 ) 03/26/2017 3:54 PM BOOTH USHER Body Mass Index 19.46 03/26/2017 3:54 PM BOOTH USHER Plan of Treatment Not on file Care Teams Mri Assistant Relationship Specialty Start Date End Date Amna Wright MD [address] [place] [address] [place] [phone] PCP - General Family Medicine 01/15/22
--- OUTSIDE RECORDS SUMMARY | 2024-04-24 21:42 | XMS_ITS | Clinical Summary ---
Author Organization [facility] Address [address] [facility] [place] [address] Care Team Providers Care Warehouse Shipping Associate Name Role Phone Amna Wright MD Primary Care Provider [phone] Source Comments [facility]non-owned Affiliates and Associated Physician Practices is amultiple site organization consisting of ambulatory clinics and hospital sitesin [place], [place], [place] and [place]. This disclosure is being madepursuant to the Care Everywhere program and may not contain all information available regarding this patient. Last updated 18.[facility] Allergies No known active allergies Medications * Be aware that medications may not be up to date on this document. Alwaysverify current medications with the patient. Medication Sig Dispensed Refills Start Date End Date Status ARIPiprazole (Abilify) 5 MG tablet Take 5 mg by mouth at bedtime Active Active Problems Problem Noted Date Diagnosed Date Adjustment disorder 01/22/2017 Family History Medical History Relation Name Comments None Known Father Status: Alive None Known Maternal Grandfather Status: None Known Maternal Grandmother Status: Alive None Known Mother Status: Alive None Known Paternal Grandfather Status: Alive None Known Paternal Grandmother Status: Alive Relation Name Status Comments Father Maternal Grandfather Maternal Grandmother Mother Paternal Grandfather Paternal Grandmother Social History Tobacco Use Types Packs/Day Years [...] Comments Blood Pressure 102/58 03/26/2017 3:54 PM FIRER GLOST KILN Pulse 76 03/26/2017 3:54 PM FIRER GLOST KILN Temperature 36.9 ??C (98.5 ??F) 03/26/2017 3:54 PM CS T Respiratory Rate 18 03/26/2017 3:54 PM FIRER GLOST KILN Oxygen Saturation - - Inhaled Oxygen Concentration - - Weight 48.3 kg (106 lb 6.4 oz) 03/26/2017 3:54 P M FIRER GLOST KILN Height 157.5 cm (5' 2 ) 03/26/2017 3:54 PM FIRER GLOST KILN Body Mass Index 19.46 03/26/2017 3:54 PM FIRER GLOST KILN Plan of Treatment Health Maintenance Due Date Last Done Comments PAP SMEAR 1998 HIV SCREENING 2013 HPV VACCINE (1 - 3-dose series) 2013 CHLAMYDIA/GONORRHEA SCREENING 2014 HEPATITIS C SCREENING 12/15/2016 DTAP/TDAP/TD VACCINES (1 - Tdap) 2017 HEPATITIS B VACCINE (1 of 3 - 19+ 3-dose series) 2017 DEPRESSION SCREENING 04/26/2023 COVID-19 VACCINE (1 - 2023-2 5 season) 2023 INFLUENZA VACCINE (#1) 2023 1, 02/15/2017 ZOSTER VACCINE (1 of 2) 2048 HIB VACCINE Aged Out No longer eligi ble based on patient's age to complete this topic MENINGOCOCCAL VACCINE Aged Out No cassidy shelton eligible based on patient's age to complete this topic PNEUMOCOCCAL VACCINE Aged Out No long er eligible based on patient's age to complete this topic Care Teams Warehouse Shipping Associate Relationship Specialty Start Date End Date Amna Wright MD [address] [place] [address] [place] [phone] PCP - General Family Medicine 01/15/22
--- OUTSIDE RECORDS SUMMARY | 2024-04-24 21:42 | XMS_ITS | Encounter Summary ---
Author Organization [facility] Address [address] [place] [address]. [place], [place] [id number] [place] [address] Care Team Providers Care Waiter/Waitress Buffet Name Role Phone Amna Wright MD Primary Care Provider [phone] Encounter Details Date Type Department Care Team (Latest Contact Info) Description 01/13/2021 Travel Social History Tobacco Use Types Packs/Day [...] have Coronavirus / COVID-19? No / Unsure 01/13/2021 5:09 AM CDT documented as of this encounter Plan of Treatment Not on file documented as of this encounter Visit Diagnoses Not on filedocumented in this encounter Care Teams Waiter/Waitress Buffet Relationship Specialty Start Date End Date Amna Wright MD [address] [place] [address] [place] [id number] PCP - General FAMILY PRACTICE 01/13/21 documented as of this encounter
--- OUTSIDE RECORDS SUMMARY | 2024-04-24 21:42 | XMS_ITS | Encounter Summary ---
Author Organization [facility] Address [address] [place] [address]. [place], [place] [id number] [place] [address] Care Team Providers Care Measuring Machine Operator Name Role Phone None, Provider Primary Care Provider Unavaila ble Reason for Visit * Reason Onset Date Comments Reschedule 12/11/2019 Encounter Details Date Type Department Care Team (Late st Contact Info) Description 12/11/[address] [facility] [address], [address] [place] [address] Shelby Dias APNP [address] [place] [address] Reschedule Social History Tobacco Use Types Packs/Day Years [...] as of this encounter Progress Notes * Ricarda Kennedy RN - 12/11/2019 4:30 PM CDT Call placed to patient regarding appointment with Mendy Dias on 12/12/2019. LVM that patient will need to reschedule as Mendy Dias will not be in the office. documented in this encounter Plan of Treatment Not on file documented as of this encounter Visit Diagnoses Not on filedocumented in this encounter Care Teams Measuring Machine Operator Relationship Specialty Start Date End Date None, Provider, PCP - General 11/26/19 01/12/21 documented as of this encounter
--- OUTSIDE RECORDS SUMMARY | 2024-04-24 21:42 | XMS_ITS | Encounter Summary ---
Author Organization [facility] Address [address] [place] [address]. [place], [place] [id number] [place] [id number] Care Team Providers Care Antique Furniture Repairer Name Role Phone Amna Wright MD Primary Care Provider [phone] Reason for Referral * Imaging (Emergency) - Closed Specialty Diagnoses / Procedures Referred By Rosalva carroll Referred To Contact RADIOLOGY Procedures CT ABD+PEL KIDNEY STONE Carol Downing MD [address] [place] [address] Phone: tel: fax: Referral ID Status Reason Start Date Expiration Date Visits Re quested Visits Authorized [id number] Closed 01/13/2021 02/12/2022 1 1 Reason for Visit * Reason Comments Flank Pain Urinary Symptoms Encounter Details Date Type Department Care Team (Late st Contact Info) Description 01/13/2021 5:31 AM CDT - 01/13/2021 10:10 AM CDT Emergency [facility] Emergency Room [address] [place], [place] [id number] Carol Downing MD [address] [place], [place] [id number] Flank Pain; Urinary Symptoms Discharge Disposition: Home or Self Care (Routine [...] AM CDT documented as of this encounter Last Filed Vital Signs Vital Sign Reading Time Taken Comments Blood Pressure 131/72 01/13/2021 10:08 AM CDT Pulse 78 01/13/2021 10:08 AM CDT Temperature 36.5 ??C (97.7 ??F) 01/13/2021 5:23 AM CD T Respiratory Rate 18 01/13/2021 10:0 8 AM CDT Oxygen Saturation 98% 01/13/2021 10: 08 AM CDT Inhaled Oxygen Concentration - - Weight 49.4 kg (108 lb 14.5 oz) 01/13/2021 5:23 AM CDT Height 157.5 cm (5' 2 ) 01/13/2021 5:23 AM CDT Body Mass Index 19.92 01/13/2021 5:23 AM CDT documented in this encounter Discharge Instructions * Discharge Instructions* Carol Downing MD - 01/13/2021 9:51 AM CDT Pain and nausea medication as needed and directed. Be sure to drink plenty of fluids. Strain urine to collect stone. Follow-up with urologist or primary care physician for further care. Call today toschedule follow-up appointment. Please return to the emergency department if needed for severely worsening symptoms or problems. * Attachments The following attachments cannot be sent through Care Everywhere. * How to Strain Your Urine (Burmese) * Kidney Stones Discharge Instructions (Burmese) documented in this encounter Medications at Time of Discharge ARIPiprazole 5 MG tablet Take 5 mg by mouth daily. 10/29/2020 ondansetron 4 MG disintegrating tablet Take 1 tablet (4 mg total) by mouth every 6 (six) hours as needed for Nausea. 10 tablet 01/13/2021 sertraline 100 MG tablet Take 100 mg by mouth daily. 12/23/2020 ketorolac 10 MG tablet Take 1 tablet (10 mg total) by mouth 4 (four) times daily as needed for Pain. 20 tablet 01/13/2021 documented as of this encounter ED Notes * Ethel Larose RN - 01/13/2021 10:09 AM CDT Pt discharged home in stable condition. Pt verbalized understanding d/c instructions and prescriptions. No further questions noted upon time of discharge. NAD noted upon discharge. * Ethel Larose RN - 01/13/2021 7:30 AM CDT Received report. Pt lying in stretcher at this time. Rates pain 7/10 in left flank area. See MAR for medical insurance clerk. Call light within reach. Side rails up x 1. Will cont to monitor. * Carol Downing MD - 01/13/2021 6:20 AM CDT Chief Complaint Chief Complaint Patient presents with ??? Flank Pain ??? Urinary Symptoms History of Present Illness Patient is a 20-year-old female who presents to the emergency department with left sided flank pain. Patient reports waking up at approximately 4 AM with pain in the right flank. She had nausea and vomiting at home. She denies any dysuria, hematuria, fever, chills, or sweats. She does have prior history of kidney stone and states this feels similar. Patient is currently rating her pain 6 out of 10. Medical History ALLERGIES: No Known Allergies MEDICATIONS: Prior to Admission medications Medication Sig Start Date End Date Taking? Authorizing Provider ARIPiprazole 5 MG tablet Take 5 mg by mouth daily. 10/29/20 Yes Doc Abstract ketorolac 10 MG tablet Take 1 tablet (10 mg total) by mouth 4 (four) times daily as needed for Pain. 01/13/21 01/18/21 Yes Carol Downing MD ondansetron 4 MG disintegrating tablet Take 1 tablet (4 mg total) by mouth every 6 (six) hours as needed for Nausea. 01/13/21 Yes Carol Downing MD sertraline 100 MG tablet Take 100 mg by mouth daily. 12/23/20 Yes Doc Abstract PAST MEDICAL HISTORY: Past Medical History: Diagnosis Date ??? Kidney stone PAST SURGICAL HISTORY: No past surgical history on file. FAMILY HISTORY: No family history on file. SOCIAL HISTORY: Social History Tobacco Use ??? Smoking status: Never Smoker ??? Smokeless tobacco: Never Used Substance Use Topics ??? Alcohol use: Never ??? Drug use: Never Review of Systems Review of Systems Constitutional: Negative for chills, diaphoresis and fever. Gastrointestinal: Positive for nausea and vomiting. Negative for abdominal pain. Genitourinary: Positive for flank pain. Negative for dysuria and hematuria. All other systems reviewed and are negative. Physical Exam Filed Vitals: 01/13/21 0523 BP: 110/74 Pulse: 71 Resp: 18 Temp: 97.7 ??F (36.5 ??C) TempSrc: Temporal SpO2: 97% Weight: 49.4 kg (108 lb 14.5 oz) Height: 5' 2 (1.575 m) Physical Exam Constitutional: Appearance: Normal appearance. She is well-developed. Cardiovascular: Rate and Rhythm: Normal rate and regular rhythm. Pulmonary: Effort: Pulmonary effort is normal. Breath sounds: Normal breath sounds. Abdominal: General: Bowel sounds are normal. Palpations: Abdomen is soft. Tenderness: There is no abdominal tenderness. There is left CVA tenderness. There is no right CVA tenderness. Musculoskeletal: General: No swelling. Normal range of motion. Skin: General: Skin is warm and dry. Neurological: Mental Status: She is alert and oriented to person, place, and time. Psychiatric: Mood and Affect: Mood normal. Behavior: Behavior normal. Diagnostic Studies / Procedures ELECTROCARDIOGRAMS: No results found for this visit on 01/13/21. LABORATORY STUDIES: Results for orders placed or performed during the hospital encounter of 01/13/21 URINALYSIS Result Value Ref Range Specimen Type URINE CLEAN CATCH COLOR (U) LIGHT YELLOW TRANSPARENCY CLEAR Specific [place] (U) 1.023 1.001 - 1.030 U PH 5.5 5.0 - 9.0 LEUKOCYTE ESTERASE NEGATIVE NEGATIVE NITRITES NEGATIVE NEGATIVE PROTEIN (U) 10 <30 MG/DL URINE GLUCOSE NORMAL NORMAL MG/DL U KETONES NEGATIVE NEGATIVE MG/DL UROBILINOGEN NORMAL NORMAL MG/DL BILIRUBIN (U) NEGATIVE NEGATIVE MG/DL BLOOD 2+ (A) NEGATIVE CULTURE & SENSITIVITY INDICATED? CULTURE IS NOT INDICATED MUCUS MANY /LPF WBC/HPF 2 <6 /HPF RBC/HPF 27 (H) <6 /HPF SQUAMOUS EPITHELIALS FEW /HPF CBC W/DIFF AUTOMATED Result Value Ref Range WBC 11.3 (H) 4.5 - 11.0 x10'3/uL RBC 4.33 4.20 - 5.40 x10'6/uL HGB 11.8 (L) 12.0 - 16.0 G/DL HCT 37.7 (L) 38.0 - 48.0 % MCV 87.1 81.0 - 99.0 FL MCH 27.3 27.0 - 31.0 PG MCHC 31.3 (L) 32.0 - 36.0 G/DL RDW 13.4 11.5 - 14.5 % PLT 238 130 - 400 x10'3/uL MPV 9.9 9.3 - 12.2 FL DIFFERENTIAL TYPE AUTOMATED DIFFERENTIAL NEUTROPHILS 83.9 % LYMPHOCYTES 11.0 % MONOCYTES 3.9 % EOSINOPHILS 0.3 % BASOPHILS 0.4 % IMMATURE GRANS 0.5 % ABS. NEUTROPHILS TOTAL 9.50 (H) 1.80 - 7.70 x10'3/uL ABS. LYMPHOCYTES 1.24 1.00 - 4.80 x10'3/uL ABS. MONOCYTES 0.44 0.24 - 0.86 x10'3/uL ABS. EOSINOPHILS 0.03 (L) 0.04 - 0.36 x10'3/uL ABS. BASOPHILS 0.04 0.01 - 0.08 x10'3/uL ABS. IMMATURE GRANULOCYTES 0.06 0.00 - 0.49 x10'3/uL COMPREHENSIVE METABOLIC PANEL Result Value Ref Range GLUCOSE 94 70 - 99 MG/DL BUN 16 7 - 18 MG/DL CREATININE S/P/B 0.73 0.55 - 1.02 MG/DL SODIUM 138 136 - 145 MMOL/L POTASSIUM 4.1 3.5 - 5.1 MMOL/L CHLORIDE S/P/B 109 (H) 100 - 108 MMOL/L CO2 26.3 21 - 32 MMOL/L CALCIUM 9.0 8.5 - 10.1 MG/DL BILIRUBIN TOTAL S/P/B 0.5 0.2 - 1.2 MG/DL TOTAL PROTEIN S/P/B 6.9 6.4 - 8.2 G/DL ALBUMIN S/P/B 3.6 3.4 - 5.0 G/DL AST 13 (L) 15 - 37 U/L ALT 22 14 - 55 U/L ALKALINE PHOSPHATASE S/P/B 65 50 - 136 U/L ANION GAP 2.7 (L) 5 - 15 MMOL/L BUN CREATININE RATIO 21.9 6 - 26 A/G RATIO 1.1 1.0 - 2.0 RATIO eGFR Non-Afr. Amer. >90 >90 ML/MIN/1.73 M2 eGFR Afr. Amer. >90 >90 ML/MIN/1.73 M2 POCT urine Result Value Ref Range URINE HCG TEST negative NEGATIVE Internal Control performed as Expected? valid VALID IMAGING STUDIES CT ABD+PEL KIDNEY STONE Final Result by User, [id number] (01/13 651) EXAMINATION: CT Abdomen and Pelvis without contrast CLINICAL HISTORY: Left flank pain, kidney stone suspected, left flank and bladder pain starting last night that woke patient from sleep. History of renal calculi. COMPARISON: CT abdomen and pelvis 11/25/2020. TECHNIQUE: Axial computed tomography of the abdomen and pelvis was performed without administration of intravenous contrast according to routine protocol. Sagittal and coronal reformatted images were obtained. A dose lowering technique was used for this procedure, which may include, but is not limited to, this reduction technique, automated exposure control, the use of degenerative reconstruction, and a ALARA (as low as reasonably achievable)/image gently techniques. FINDINGS: VISUALIZED LOWER THORAX: The included lung bases are clear. The visualized heart is normal in size. HEPATOBILIARY: The liver is normal in size with no discrete contour abnormality. The gallbladder is unremarkable. The pancreas is poorly evaluated without intravenous contrast; however there is no peripancreatic inflammation. SPLEEN: The spleen is normal in size. GENITOURINARY: There is no adrenal mass. There is a 3 mm calculus at the left ureterovesicular junction with associated mild hydroureter and mild pelvocaliectasis. There is no significant periureteral stranding. There is a punctate nonobstructing calculus in the lower pole of the left kidney. The urinary bladder is unremarkable. The uterus is normal in size. There is a cystic focus in the right adnexa measuring 4.8 cm and a 2.7 cm cystic focus in the left adnexa, likely reflecting a dominant follicles/simple cysts. AORTA: The abdominal aorta is normal in caliber. LYMPH NODES: No retroperitoneal adenopathy is seen on this examination obtained without intravenous contrast in the setting of paucity of intra-abdominal and retroperitoneal fat. GASTROINTESTINAL: There is no gastric or small bowel dilatation. There is a normal appendix. There is no bowel obstruction. PERITONEUM: No free intraperitoneal fluid or air is seen. MUSCULOSKELETAL: There is no destructive osseous lesion. IMPRESSION: Obstructing calculus at the left ureterovesicular junction measuring 3 mm with associated mild hydroureter and mild pelvocaliectasis Referred By: CAROL DOWNING Interpreted By: Kashif Willard DO, 01/13/2021 6:42 AM ED Course / Medical Decision Making MDM Number of Diagnoses or Management Options Left ureteral calculus Diagnosis management comments: Patient presents with left-sided flank pain. History of kidney stones in the past. Patient with recurrent kidney stone today. Pain improved with Toradol. Will dischargewith medications and referral to urology. Amount and/or Complexity of Data Reviewed Clinical lab tests: ordered and reviewed Tests in the radiology section of CPT??: reviewed and ordered Patient Progress Patient progress: stable Medications ketorolac (TORADOL) injection 30 mg (30 mg Intravenous Given 01/13/21 0734) New Prescriptions KETOROLAC 10 MG TABLET Take 1 tablet (10 mg total) by mouth 4 (four) times daily as needed for Pain. ONDANSETRON 4 MG DISINTEGRATING TABLET Take 1 tablet (4 mg total) by mouth every 6 (six) hours as needed for Nausea. Clinical Impression Left ureteral calculus (Primary) Disposition: Discharge Carol Downing MD 01/13/21 0952 * Juan Francisco Yu RN - 01/13/2021 5:25 AM CDT Patient ambulatory to ED with c/o left flank pain and bladder pain. Patient states onset of symptoms began last night and work her from sleep. Patient has history of kidney stones and states that this feels similar. Patient afebrile a/ox4 and in no respiratory distress at this time. documented in this encounter Plan of Treatment Not on file documented as of this encounter Procedures Procedure Name Priority Date/Time Associated Diagnosis Comments COMPREHENSIVE METABOLIC PANEL STAT 01/13/2021 7:26 AM CDT CBC W/DIFF AUTOMATED STAT 01/13/2021 7:[address] ABD+PEL KIDNEY STONE STAT 01/13/2021 6:37 AM CDT HC URINALYSIS AUTO W/O MICRO STAT 01/13/2021 5:45 AM CDT POCT URINE (BACK OFFICE) STAT 01/13/2021 5:44 AM CDT documented in this encounter Results * (ABNORMAL) COMPREHENSIVE METABOLIC PANEL (01/13/2021 7:26 AM CDT) GLUCOSE 94 70 - 99 MG/DL 01/13/2021 8:08 AM CDT [facility] BUN 16 7 - 18 MG/DL 01/13/2021 8:08 AM CDT [facility] CREATININE S/P/B 0.73 0.55 - 1.02 MG/DL 01/13/2021 8:08 AM CDT [facility] SODIUM S/P/B 138 136 - 145 MMOL/L 01/13/2021 8:08 AM CDT [facility] POTASSIUM S/P/B 4.1 3.5 - 5.1 MMOL/L 01/13/2021 8:08 AM T [facility] CHLORIDE S/P/B 109(H) 100 - 108 MMOL/L 01/13/2021 8:08 AM T [facility] CO2 26.3 21 - 32 MMOL/L 01/13/2021 8:08 AM T [facility] CALCIUM S/P/B 9.0 8.5 - 10.1 MG/DL 01/13/2021 8:08 AM T [facility] BILIRUBIN TOTAL S/P/B 0.5 0.2 - 1.2 MG/DL 01/13/2021 8:08 AM T [facility] Comment: THIS ASSAY IS NOT RECOMMENDED FOR PATIENTS UNDERGOING TREATMENT WITH ELTROMBOPAG DUE TO THE POTENTIAL FOR FALSELY ELEVATED RESULTS. TOTAL PROTEIN S/P/B 6.9 6.4 - 8.2 G/DL 01/13/2021 8:08 AM T [facility] ALBUMIN S/P/B 3.6 3.4 - 5.0 G/DL 01/13/2021 8:08 AM T [facility] AST 13(L) 15 - 37 U/L 01/13/2021 8:08 AM [facility] ALT 22 14 - 55 U/L 01/13/2021 8:08 AM T [facility] ALKALINE PHOSPHATASE S/P/B 65 50 - 136 U/L 01/13/2021 8:08 AM T [facility] ANION GAP 2.7(L) 5 - 15 MMOL/L 01/13/2021 8:08 AM T [facility] BUN CREATININE RATIO 21.9 6 - 26 01/13/2021 8:08 AM T [facility] A/G RATIO 1.1 1.0 - 2.0 RATIO 01/13/2021 8:08 AM CDT [facility] EGFR NON-AFR. AMER. >90 >90 ML/MIN/1.7 3 M2 01/13/2021 8:08 AM CDT [facility] EGFR AFR. AMER. >90 >90 ML/MIN/1.7 3 M2 01/13/2021 8:08 AM CDT [facility] Comment: NOTE: eGFR is not calculated for patients <18 years of age. This is an estimated GFR (CKD EPI) and should not be used for calculating drug doses. 01/13/2021 7:26 AM CDT us Carol Downing MD LABORATORY Final Resu lt [facility] [address] [place] [address], * (ABNORMAL) CBC W/DIFF AUTOMATED (01/13/2021 7:26 AM CDT) WBC 11.3(H) 4.5 - 11.0 x10'3/uL 01/13/2021 7:41 AM CDT [facility] RBC 4.33 4.20 - 5.40 x10'6/uL 01/13/2021 7:41 AM CDT [facility] HGB 11.8(L) 12.0 - 16.0 G/DL 01/13/2021 7:41 AM CDT [facility] HCT 37.7(L) 38.0 - 48.0 % 01/13/2021 7:41 AM CDT [facility] MCV 87.1 81.0 - 99.0 FL 01/13/2021 7:41 AM CDT [facility] MCH 27.3 27.0 - 31.0 PG 01/13/2021 7:41 AM CDT [facility] MCHC 31.3(L) 32.0 - 36.0 G/DL 01/13/2021 7:41 AM CDT [facility] RDW 13.4 11.5 - 14.5 % 01/13/2021 7:41 AM CDT [facility] PLT 238 130 - 400 x10'3/uL 01/13/2021 7:41 AM CDT [facility] MPV 9.9 9.3 - 12.2 FL 01/13/2021 7:41 AM CDT [facility] DIFFERENTIAL TYPE AUTOMATED DIFFERENTIAL 01/13/2021 7:41 AM T [facility] NEUTROPHILS % 83.9 % 01/13/2021 7:41 AM CDT [facility] LYMPHOCYTES % 11.0 % 01/13/2021 7:41 AM CDT [facility] MONOCYTES % 3.9 % 01/13/2021 7:41 AM CDT [facility] EOSINOPHILS 0.3 % 01/13/2021 7:41 AM T [facility] BASOPHILS 0.4 % 01/13/2021 7:41 AM CDT [facility] IMMATURE GRANS % 0.5 % 01/14/20 7:41 AM T [facility] ABS. NEUTROPHILS TOTAL 9.50(H) 1.80 - 7.70 x10'3/uL 01/13/2021 7:41 AM CDT [facility] ABS. LYMPHOCYTES 1.24 1.00 - 4.80 x10'3/uL 01/13/2021 7:41 AM CDT [facility] ABS. MONOCYTES 0.44 0.24 - 0.86 x10'3/uL 01/13/2021 7:41 AM CDT [facility] ABS. EOSINOPHILS 0.03(L) 0.04 - 0.36 x10'3/uL 01/13/2021 7:41 AM CDT [facility] ABS. BASOPHILS 0.04 0.01 - 0.08 x10'3/uL 01/13/2021 7:41 AM CDT [facility] ABS. IMMATURE GRANULOCYTES 0.06 0.00 - 0.49 x10'3/uL 01/13/2021 7:41 AM CDT [facility] 01/13/2021 7:26 AM CDT us Carol Downing MD LABORATORY Final Resu lt [facility] [address] [place] [address], * CT ABD+PEL KIDNEY STONE (01/13/2021 6:37 AM CDT) Anatomical Region Laterality Modality Abdomen Computed Tomogra phy 01/13/2021 6:42 AM CDT Impressions 01/13/2021 6:49 AM CDT IMPRESSION: Obstructing calculus at the left ureterovesicular junction measuring 3 mm with associated mild hydroureter and mild pelvocaliectasis Referred By: CAROL DOWNING Interpreted By: Kashif Willard DO, 01/13/2021 6:42 AM Narrative 01/13/2021 6:49 AM CDT EXAMINATION: CT Abdomen and Pelvis without contrast CLINICAL HISTORY: Left flank pain, kidney stone suspected, left flank and bladder pain starting last night that woke patient from sleep. History of renal calculi. COMPARISON: CT abdomen and pelvis 11/25/2020. TECHNIQUE: Axial computed tomography of the abdomen and pelvis was performed without administration of intravenous contrast according to routine protocol. Sagittal and coronal reformatted images were obtained. A dose lowering technique was used for this procedure, which may include, but is not limited to, this reduction technique, automated exposure control, the use of degenerative reconstruction, and a ALARA (as low as reasonably achievable)/image gently techniques. FINDINGS: VISUALIZED LOWER THORAX: The included lung bases are clear. ??The visualized heart is normal in size. HEPATOBILIARY: The liver is normal in size with no discrete contour abnormality. ??The gallbladder is unremarkable. ??The pancreas is poorly evaluated without intravenous contrast; however there is no peripancreatic inflammation. SPLEEN: The spleen is normal in size. GENITOURINARY: There is no adrenal mass. ??There is a 3 mm calculus at the left ureterovesicular junction with associated mild hydroureter and mild pelvocaliectasis. There is no significant periureteral stranding. There is a punctate nonobstructing calculus in the lower pole of the left kidney. The urinary bladder is unremarkable. ??The uterus is normal in size. There is a cystic focus in the right adnexa measuring 4.8 cm and a 2.7 cm cystic focus in the left adnexa, likely reflecting a dominant follicles/simple cysts. ?? AORTA: The abdominal aorta is normal in caliber. LYMPH NODES: No retroperitoneal adenopathy is seen on this examination obtained without intravenous contrast in the setting of paucity of intra-abdominal and retroperitoneal fat. GASTROINTESTINAL: There is no gastric or small bowel dilatation. ??There is a normal appendix. ??There is no bowel obstruction. PERITONEUM: No free intraperitoneal fluid or air is seen. MUSCULOSKELETAL: There is no destructive osseous lesion. Procedure Note Kashif Willard, - 01/13/2021 EXAMINATION: CT Abdomen and Pelvis without contrast CLINICAL HISTORY: Left flank pain, kidney stone suspected, left flank andbladder pain starting last night that woke patient from sleep. History ofrenal calculi. COMPARISON: CT abdomen and pelvis 11/25/2020. TECHNIQUE: Axial computed tomography of the abdomen and pelvis wasperformed without administration of intravenous contrast according toroutine protocol. Sagittal and coronal reformatted images were obtained. Adose lowering technique was used for this procedure, which may include,but is not limited to, this reduction technique, automated exposurecontrol, the use of degenerative reconstruction, and a ALARA (as low asreasonably achievable)/image gently techniques. FINDINGS: VISUALIZED LOWER THORAX: The included lung bases are clear. The visualized heart is normal insize. HEPATOBILIARY: The liver is normal in size with no discrete contour abnormality. Thegallbladder is unremarkable. The pancreas is poorly evaluated withoutintravenous contrast; however there is no peripancreatic inflammation. SPLEEN: The spleen is normal in size. GENITOURINARY: There is no adrenal mass. There is a 3 mm calculus at the leftureterovesicular junction with associated mild hydroureter and mildpelvocaliectasis. There is no significant periureteral stranding. There elliott punctate nonobstructing calculus in the lower pole of the left kidney.The urinary bladder is unremarkable. The uterus is normal in size. Thereis a cystic focus in the right adnexa measuring 4.8 cm and a 2.7 cm cysticfocus in the left adnexa, likely reflecting a dominant follicles/simplecysts. AORTA: The abdominal aorta is normal in caliber. LYMPH NODES: No retroperitoneal adenopathy is seen on this examination obtained withoutintravenous contrast in the setting of paucity of intra-abdominal andretroperitoneal fat. GASTROINTESTINAL: There is no gastric or small bowel dilatation. There is a normalappendix. There is no bowel obstruction. PERITONEUM: No free intraperitoneal fluid or air is seen. MUSCULOSKELETAL: There is no destructive osseous lesion. IMPRESSION: Obstructing calculus at the left ureterovesicular junction measuring 3 mmwith associated mild hydroureter and mild pelvocaliectasis Referred By: CAROL DOWNING Interpreted By: Kashif Willard DO, 01/13/2021 6:42 AM us Carol Downing MD CT Final Resu lt * (ABNORMAL) URINALYSIS (01/13/2021 5:45 AM CDT) SPECIMEN TYPE URINE CLEAN CATCH 01/13/2021 5:43 AM CDT [facility] COLOR (U) LIGHT YELLOW 01/13/2021 6:07 AM CDT [facility] TRANSPARENCY CLEAR 01/13/2021 6:07 AM [facility] SPECIFIC GRAVITY (U) 1.023 1.001 - 1.030 01/13/2021 6:07 AM T [facility] U PH 5.5 5.0 - 9.0 01/13/2021 6:07 AM [facility] LEUKOCYTES (U) NEGATIVE NEGATIVE 01/13/2021 6:07 AM T [facility] NITRITES NEGATIVE NEGATIVE 01/13/2021 6:07 AM [facility] PROTEIN (U) 10 <30 MG/DL 01/13/2021 6:07 AM [facility] URINE GLUCOSE NORMAL NORMAL MG/DL 01/13/2021 6:07 AM [facility] KETONES MG/DL (U) NEGATIVE NEGATIVE MG/DL 01/13/2021 6:07 AM [facility] UROBILINOGEN NORMAL NORMAL MG/DL 01/13/2021 6:07 AM [facility] BILIRUBIN (U) NEGATIVE NEGATIVE MG/DL 01/13/2021 6:07 AM [facility] BLOOD (U) 2+(A) NEGATIVE 01/13/2021 6:07 AM [facility] CULTURE & SENSITIVITY INDICATED? CULTURE IS NOT INDICATED 01/13/2021 6:07 AM [facility] MUCUS MANY /LPF 01/13/2021 6:07 AM [facility] WBC/HPF 2 <6 /HPF 01/13/2021 6:07 AM [facility] RBC/HPF 27(H) <6 /HPF 01/13/2021 6:07 AM [facility] SQUAMOUS EPITHELIALS FEW /HPF 01/13/2021 6:07 AM [facility] URINE SPECIMEN OBTAINED BY CLEAN CATCH PROCEDURE / Unknown 01/13/2021 5:45 AM CDT Regina Lanier MD URINE ORDERABLES Final Result [facility] [address] [place] [address], * POCT urine (01/13/2021 5:44 AM CDT) URINE HCG TEST negative NEGATIVE Internal Control performed as Expected? valid VALID Regina Lanier MD POINT OF CARE TEST ORDERABLES Final Result documented in this encounter Visit Diagnoses Diagnosis Left ureteral calculus- Primary Calculus of ureter documented in this encounter Administered Medications Inactive Administered Medications - up to 3 most recent administrations Medication Order MAR Action Action Date Dose Rate Site ketorolac (TORADOL) injection 30 mg 30 mg, Intravenous, Once, 1 dose, On Wed01/13/21 at 0630, For IV administration, give over 15 seconds. Given 01/13/2021 7:34 AM CDT 30 mg documented in this encounter Active and Recently Administered Medications Times are shown in CDT. Scheduled Medication Order 01/11/2021 01/12/2021 01/13/2021 ketorolac (TORADOL) injection 30 mg (COMPLETED) 30 mg, Intravenous, Once, 1 dose, On Wed01/13/21 at 0630, For IV administration, give over 15 seconds. 0734 (Given - Provid er: Ethel Larose RN) documented in this encounter Care Teams Antique Furniture Repairer Relationship Specialty Start Date End Date Amna Wright MD [address] [place] [address] AL[place] MELCHOR [id number] PCP - General FAMILY PRACTICE 01/13/21 documented as of this encounter
--- OUTSIDE RECORDS SUMMARY | 2024-04-24 21:42 | XMS_ITS | Clinical Summary ---
Author Organization [facility] Address [address] [place] [address]. [place], [place] [address] [id number] Care Team Providers Care Follow Up Specialist Name Role Phone Amna Wright MD Primary Care Provider [phone] Allergies No known active allergies Medications ARIPiprazole 5 MG tablet Take 5 mg by mouth daily. 1 Active sertraline 100 MG tablet Take 100 mg by mouth daily. 1 Active ondansetron 4 MG disintegrating tablet Take 1 tablet (4 mg total) by mouth every 6 (six) hours as needed for Nausea. 10 tablet 1 Active Social History Tobacco Use Types Packs/Day Years Used Date Smoking Tobacco: Never Smokeless Tobacco: Never Alcohol Use Standard Drinks/Week Comments Never 0 (1 standard drink = 0.6 oz pur e alcohol) AUDIT-C Answer Date Recorded Frequency of Alcohol Consumption Never 11/26/2019 Average Number of Drinks Not on file Frequency of Binge Drinking Not on file [...] Mass Index 19.92 01/13/2021 5:23 AM CDT Plan of Treatment Health Maintenance Due Date Last Done Comments Cervical Cancer Screening Pa p Smear (Age 21 to 29) Every 3 Years 1998 Cervical Cancer Screening 1998 Annual Physical 2001 Hepatitis C 2016 HPV Vaccines (3 - 3-dose series) 02/16/2017 11/24/2016, 05/27/2016 DTaP, Tdap and Td Vaccines ( 1 - Tdap) 2017 Hepatitis B Vaccines (1 of 3 - 19+ 3-dose series) 2017 COVID-19 Vaccine (3 - 2023-2 5 season) 2023 08/15/2020, 07/23/2020 Influenza Adult (#1) 2024 05/10/2020, 02/15/2017 Meningococcal Vaccine Aged Out No cassidy shelton eligible based on patient's age to complete this topic Pneumococcal Vaccine: Pediatrics (0 to 5 Years) and At-Risk Patients (6 to 64 Years) Aged Out No longer eligible b ased on patient's age to complete this topic RSV Immunizations Under 20 Months Aged Out No longer eligible b ased on patient's age to complete this topic Insurance Care Teams Follow Up Specialist Relationship Specialty Start Date End Date Amna Wright MD [address] [place] [address] PCP - General FAMILY PRACTICE 01/13/21
--- OUTSIDE RECORDS SUMMARY | 2024-04-24 21:42 | XMS_ITS | Encounter Summary ---
Author Organization [facility] Address [address] [place] [address]. [place], [place] [address] [place] [address] Care Team Providers Care Asthma Educator Name Role Phone None, Provider Primary Care Provider Unavaila ble Encounter Details Date Type Department Care Team (Latest Contact Info) Description 11/26/2019 Travel Social History Tobacco Use Types Packs/Day [...] on filedocumented in this encounter Care Teams Asthma Educator Relationship Specialty Start Date End Date None, Provider, PCP - General 11/26/19 01/12/21 documented as of this encounter
--- OUTSIDE RECORDS SUMMARY | 2024-04-24 21:43 | XMS_ITS | Continuity of Care Document ---
Author Organization [facility], [facility] Address [address] [address] Assessment No assessment recorded. Plan of Treatment Reminders Order Date Submit Date Provider Last Modified By Organization Details Last Modified Time Details Appointments Annual 15 2024 01:00P Myranda Rodriguez MD Not available Not available Not available Lab pap, IG + reflex HPV (16+18+45 ) 2023 024 [facility]), [address] [place] [address], [id number], 03/15/2024 09:35:42 RPR (rapid plasma reagin), serum 2023 024 [facility]), [address] [place] [address], [id number], 03/08/2024 08:14:47 HIV 1 + 2, meaningfu l use set 2023 024 [facility]), [address] [place] [address], [id number], 03/08/2024 08:14:48 HBsAg (hepatiti s B surface Ag), EIA, serum 2023 024 [facility]), [address] [place] [address], [id number], 03/08/2024 08:14:49 chlamydia trachomat is + neisseria gonorrhoe ae + trichomon as vaginalis rRNA panel, FRANK+probe 2023 024 NATALIE [facility] [address] [facility], [place], [address], 03/08/2024 21:07:21 Hepatitis C IgG Ab, qual, serum 2023 024 NATALIE [facility] [address] [facility], [place], [address], 03/08/2024 08:14:48 Referral None recorded. Procedures None recorded. Surgeries None recorded. Imaging None recorded. Medication Orders None recorded. Patient TargetsNo targets recorded. Patient Instructions Encounter Date Encounter Id Patient Instructions Last Modified By Organization Details Last Modified Time 03/07/2024 [id number] specimen collection & handling* [email or web address] Not available 03/07/2024 17:00:14 You may find the following electronic resources helpful. Contraception: [email or web address] [email or web address]/-control STD screening and prevention: [email or web address] /[email or web address]/f [email or web address]-id-[email or web address] -stis [email or web address] Not available 03/07/2024 16:46:02 Discussed screening for precancerous lesion of the cervix from [facility]COG, ASCCP starting age 21 HPV co-testing reviewed Pt had gardisil series pap HPV done Discussed annual STI testing. Discussed importance of protection from exposure to STI and the benefit of condoms- done Monthly breast exams encouraged Patient advised to return for annual in 1 year Patient voiced understanding and all questions were addressed [email or web address] Not available 03/07/2024 16:47:01 Reason for Referral None Reported. Problems No Known Problems Medical Equipment None Reported. Allergies No known drug allergies Medications Not known to be on any medication Vitals Date Recorded Body height Body mass index (BMI) Body weight Systolic blood pressure Diastolic blood pressure Provider Name and Address Organization Details Last Updated DateTime 03/07/2024 157.48 cm 27.7 kg/m2 59939.88 g 114 mm[Hg] 68 mm[Hg] LUÍS ROSADO [facility] 16:17:48 Social History Question Answer Notes LastModified by Organizat ion Details LastModified Time Tobacco Smoking Status Never Smoker LUÍS ROSADO [facility] 03/07/2024 16:10:08 Do You Have An Advance Directive? No [email or web address] Information not available 03/07/2024 What Is Your Level Of Alcohol Consumption? Occasional [email or web address] Information not available 03/07/2024 If You Are , What Was Your Level Of Alcohol Consumption Prior To ? None Information not available 03/07/2024 How Many Years Have You Consumed Alcohol? 5 [email or web address] Information not available 03/07/2024 What Is Your Level Of Caffeine Consumption? Occasional [email or web address] Information not available 03/07/2024 Are You Currently Employed? Yes [email or web address] Information not available 03/07/2024 What Type Of Diet Are You Following? REGULAR [email or web address] Information not available 03/07/2024 How Many Years Have You Used Illicit Or Recreational Drugs? 0 [email or web address] Information not available 03/07/2024 What Was The Date Of Your Most Recent Tobacco Screening? 03/07/2024 [email or web address] Information not available 03/07/2024 What Is Your Relationship Status? Single [email or web address] Information not available 03/07/2024 Do You Use Any Illicit Or Recreational Drugs? No [email or web address] Information not available 03/07/2024 Has Tobacco Cessation Counseling Been Provided? No Information not available 03/07/2024 Do You Or Have You Ever Used Any Other Forms Of Tobacco Or Nicotine? No Information not available 03/07/2024 Sex: Unknown Functional Status Question Answer Note LastModified by Organizat ion Details LastModified Time What is your exercise level? Occasional [email or web address] Information not available 03/07/2024 Mental Status None recorded. Family History Relationship Description Onset Age of this Age Resolved Age Notes LastModified by Organization Details LastModified Time Father No current problems or disability Not available 03/07 16:12:27 Mother No current problems or disability [email or web address] Not available 03/07 16:12:27 Medical History Condition Response No diseases or conditions Y Gynecological History Statement/Question Response 11 History of PCOS N Flow Light History of Fibroids N Date of LMP 03/03/2024 History of Infertility N History of Vulvar Dysplasia N History of Cervical Dysplasia N Current Control Method: Condoms Current Control Method Condoms History of HPV N Cologuard Testing N History of Recurrent Ovarian Cysts N Age at first intercourse 20 History of Endometriosis N Sexually Active? Y History of Abnormal PAP N History of Dysmenorrhea N Menses Monthly Y Date of Last Pap Smear Sexual Problems? N History of Sexually Transmitted Infectio n N Obstetrics History GPAL:G 0 P 0 0 0 0 Type Value Multiple Births 0 Full Term 0 Induced 0 Spontaneous 0 Premature 0 Living 0 Ectopics 0 Total 0 Immunizations Vaccine Type Date Status Note Provider Nam e and Address Organization Details Recorded Time HPV9 7 completed LUÍS ALONZO null, [place] - [facility] 03/07/2024 16:09:51 COVID-19, mRNA, LNP-S, PF, 30 mcg/0.3 mL dose 1 completed LUÍS ALONZO null, [place] [facility] 03/07/2024 16:09:51 COVID-19, mRNA, LNP-S, PF, 30 mcg/0.3 mL dose 1 completed LUÍS ALONZO null, [place] - [facility] 03/07/2024 16:09:51 Tdap 3 completed LUÍS ALONZO [place], [place] [facility] 03/07/2024 16:09:51 Influenza, split virus, trivalent, preservative 3 completed LUÍS ALONZO null, [place] - [facility] 03/07/2024 16:09:51 HPV, quadrivalent 7 completed LUÍS ALONZO [place], [place] [facility] 03/07/2024 16:09:51 Influenza, split virus, quadrivalent, PF 1 completed LUÍS ALONZO [place], [place] [facility] 03/07/2024 16:09:51 Influenza, split virus, quadrivalent, PF 7 completed LUÍS ALONZO null, [place] [facility] 03/07/2024 16:09:51 Past Encounters Encounter ID Performer Location Encounter Start Date Encounter Closed Date Diagnosis/Indication Diagnosis SNOMED-CT Code Diagnosis ICD10 Code [id number] Myranda Harden MD [address] [address] 03/07/2024 16:06:04 03/08/2024 12:19:33 Gynecologic examination 27815242 Z01.419 Human jewell lloma virus screening 260615090 Z11.51 Venereal d isease screening 841241013 Z11.3 Health Concerns Section Related Observation LastModified by Organization Detai ls LastModified Time None Recorded Concern Status LastModified by Organization Details LastModified Time None Recorded Payers Encounter Date Sequence Insurance Name Policy Number Policy Wilson Covered Member ID Wilson Member ID Guarantor Name 03/07/2024 1 [employer] [id number] K Milo Stewart [id number] Shanique Stewart Notes Date Note Type Note Provider Name and Address Organization Details Recorded Time 03/07/2024 text/html [facility] Annual Well-Women Visit Age 21-29Reported bypatient.Current Medical History:no active medical problems; no recent surgeries or hospitalizations Relevant Family History:no family history of breast cancer; no family history of ovarian cancer; no family history of uterine cancer; no family history of colon cancer; no family history of blood clots/DVT Last Pap smear:last Pap smear was normal Risk factors for cervical cancer ([facility]) Z91.89:5 or more lifetime sexual partners; total 15 partners Medical risk factors:no historical risk factors Contraceptive Method:Current Method Used: condoms Sexually Active:Yes: new partner STI Screen:due;requests STI testing because of Condom Use:Yes Menstrual cycle:normal menstrual cycle and flow 23 y/o G0 LMP 03/03/24 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 Occasional Babysitter offered per [facility] policy. Occasional Babysitter was{{ACCEPTED DECLINED *}}.Reason For Declination: {{Pt only wants provider in exam room Pt does not feel the need for a child protective investigator*}} Myranda Harden MD [address] [facility] [address], [place], [address], [facility] 03/07/2024 16:56:58 OBGyn Episode No OBEpisode recorded.
--- OUTSIDE RECORDS SUMMARY | 2024-04-24 21:43 | XMS_ITS | Data Portability ---
Author Organization [facility] [employer], Main Office Address [address] [place] [address] Assessment No assessment recorded. Plan of Treatment Reminders Order Date Submit Date Provider Last Modified By Organization Details Last Modified Time Details Appointments None recorded. Lab None recorded. Referral psychiatris t referral - Please call the pt to make an appointment . 2022 023 [email or web address] [facility], [address] [place] [address], [id number], 17:51:07 Procedures None recorded. Surgeries None recorded. Imaging None recorded. Medication Orders venlafaxine ER 75 mg capsule,ext ended release 24 hr 2022 023 [facility] [id number], [place], [address], 11:07:54 Patient TargetsNo targets recorded. Patient InstructionsNo instructions recorded. Reason for Referral Psychiatrist Referral for Ma tess depressive disorder Please call the pt to make an appointment. Referring Physician: Francisco Tovar, Family Medicine, Encounter Date: 08/04/2022 Results Created Date Observation Date Name Description Value Unit Range Abnormal Flag Note LastModifiedBy Organization Detail LastModifiedTime 05/15/1905/15/2022 rapid flu (A+B) Flu A negati ve Not Available [facility] [address] , [place], [address], 05/13/2022 11:58:42 05/15/19 23 05/15/2022 rapid flu (A+B) Flu B negati ve Not Available [address] , [place], [address], 05/13/2022 11:58:42 05/15/19 23 05/15/2022 rapid strep group A, throa t STREP A negati ve Not Available [address] , [place], [address], 05/13/2022 11:58:05 09/23/19 23 09/22/2022 rapid strep group A, throa t STREP A negati ve Not Available [facility] [address], [place], [address], 09/22/2022 14:09:24 Result Notes None recorded. Problems Name Problem SNOMED Code Status Onset Date Resolution Date Notes Provider Name and Address Organization Details Recorded Time Pain in throat 379406215 Active 2022 Not Available [facility] 3 18:36:29 Borderline personality disorder 84178440 Active 2021 Not Available [facility] 3 18:36:29 Major depressive disorder 932503575 Active 2021 Not Available [facility] 3 18:36:29 Kidney stone 44144248 Active 2020 Not Available [facility] 3 18:36:29 Acute pharyngitis 222344954 Active 2022 ROSANA Ga [address] [address], [place], [address] , [employer] 3 17:56:14 Cough 55311576 Active 2022 ROSANA Ga [address] [facility] [address], [place], [address] , [employer] [facility] [employer] [facility] [employer] 3 17:58:52 Problem Notes None recorded. Medical Equipment None Reported. Allergies No known drug allergies Medications Name Sig Start Date Stop Date Status Note LastModified by Organization Details LastModified Time venlafaxine ER 37.5 mg capsule,ext ended release 24 hr TAKE 1 CAPSULE BY MOUTH EVERY DAY active Not Available Not Available No t Available venlafaxine ER 75 mg capsule,ext ended release 24 hr Take 1 capsule every day by oral route for 90 days. 2022 active Not Available Not Available Not Avai lable IBU 800 mg tablet 08/13 completed Not Available Not Available Not Available hydrocodone 5 mg-acetamin ophen 325 mg tablet TAKE 1 TABLET BY MOUTH EVERY 4 HOURS NEEDED FOR PAIN active Not Available Not Available No t Available prednisone 20 mg tablet Take 2 tabs daily x 5 days 2022 active Not Available Not Available Not Avai lable sertraline 100 mg tablet TAKE 1 & 1/2 TABLET BY MOUTH EVERY DAY FOR 90 DAYS 08/04 completed Not Available Not Available Not Available Zithromax Z-Herbie 250 mg tablet TAKE 2 TABLETS (500 MG) BY ORAL ROUTE ONCE DAILY FOR 1 DAY THEN 1 TABLET (250 MG) BY ORAL ROUTE ONCE DAILY FOR 4 DAYS 2022 active Not Available Not Available Not Avai lable penicillin V potassium 500 mg tablet 08/13 completed Not Available Not Available Not Available ketorolac 10 mg tablet TAKE 1 TABLET (10 MG TOTAL) BY MOUTH 4 (FOUR) TIMES DAILY NEEDED FOR PAIN. active Not Available Not Available No t Available amoxicillin 875 mg tablet TAKE 1 TABLET BY MOUTH TWICE A DAY FOR 10 DAYS 08/04 completed Not Available Not Available Not Available tamsulosin 0.4 mg capsule TAKE 1 CAPSULE BY MOUTH EVERY DAY active Not Available Not Available No t Available benzonatate 100 mg capsule Take 1 capsule 3 times a day by oral route as needed for 10 days. 2022 active Not Available Not Available Not Avai lable pantoprazol e 40 mg tablet,aye yed release Take 1 tablet every day by oral route. active Not Available Not Available No t Available buspirone 10 mg tablet Take 1 tablet 3 times a day by oral route as needed. 08/04 completed Not Available Not Available Not Available ibuprofen 600 mg tablet Take 1 tablet 3 times a day by oral route for 30 days. 08/13 completed Not Available Not Available Not Available methylpredn isolone 4 mg tablets in a dose pack TAKE 6 TABLETS ON DAY 1 DIRECTED ON PACKAGE AND DECREASE BY 1 TAB EACH DAY FOR A TOTAL OF 6 DAYS 08/04 completed Not Available Not Available Not Available ondansetron 4 mg disintegrat ing tablet TAKE 1 TABLET BY MOUTH EVERY 8 HOURS NEEDED FOR NAUSEA active Not Available Not Available No t Available fluticasone propionate 50 mcg/actuati on nasal spray,suspe nsion Standard 1 spray every day by intranasa l route for 30 days. active Not Available Not Available No t Available amoxicillin 875 mg-potassiu m clavulanate 125 mg tablet TAKE 1 TABLET BY MOUTH TWICE A DAY FOR 10 DAYS 08/04 completed Not Available Not Available Not Available escitalopra m 10 mg tablet TAKE 2 TABLETS BY MOUTH EVERY DAY 11/28 completed Not Available Not Available Not Available aripiprazol e 5 mg tablet TAKE 1 TABLET BY MOUTH EVERY DAY 2022 active Not Available Not Available Not Avai lable escitalopra m 5 mg tablet Take 1 tablet every day by oral route. 02/15 completed Not Available Not Available Not Available aripiprazol e 2 mg tablet Take 1 tablet every day by oral route for 30 days. active Not Available Not Available No t Available Balcoltra 0.1 mg-0.02 mg (21)/iron (7) tablet TAKE 1 TABLET BY MOUTH EVERY DAY active Not Available Not Available No t Available Vitals Date Recorded Body mass index (BMI) Body height Oxygen saturation Oxygen saturation in Arterial blood by Pulse oximetry Heart rate Body temperature Body weight Systolic blood pressure Diastolic blood pressure Provider Name and Address Organization Details Last Updated DateTime 2 21 kg/m2 157.48 cm 97 % 97 % 95 /min 98.7 [degF] 31393.1 2 g 110 mm[Hg] 70 mm[Hg] Not Available [facility] 3 18:35:54 Date Recorded Body mass index (BMI) Body height Oxygen saturation Oxygen saturation in Arterial blood by Pulse oximetry Heart rate Body temperature Body weight Systolic blood pressure Diastolic blood pressure Provider Name and Address Organization Details Last Updated DateTime 2 24.7 kg/m2 157.48 cm 97 % 97 % 119 /min 97.8 [degF] 59391.9 7 g 110 mm[Hg] 72 mm[Hg] Not Available [facility] 3 18:35:54 Date Recorded Body height Provider Name an d Address Organization Details Last Updated DateTime 05/15/2022 157.48 cm Not Available [facility] 3 18:35:55 Date Recorded Body height Body mass index (BMI) Body weight Body temperature Heart rate Oxygen saturation Oxygen saturation in Arterial blood by Pulse oximetry Systolic blood pressure Diastolic blood pressure Provider Name and Address Organization Details Last Updated DateTime 3 157.48 cm 26 kg/m2 34121.1 2 g 97.8 [degF] 74 /min 98 % 98 % 108 mm[Hg] 68 mm[Hg] Cherry Cabrales RN [place] [employer] 3 10:38:22 Date Recorded Body height Provider Name an d Address Organization Details Last Updated DateTime 09/22/2022 157.48 cm Myranda Mooney CMA [employer] 09/22/2022 15:52:54 Social History Question Answer Notes LastModified by Organizat ion Details LastModified Time Tobacco Smoking Status Never Smoker Not Available [facility] 06/24/2022 18:35:26 Do You Have An Advance Directive? No [id number].[id number] Information not available 06/24/2022 What Is Your Level Of Alcohol Consumption? Occasional MIGRATION.[id number] 9638 Information not available 06/24/2022 Do You Wear A Helmet When Biking? Yes MIGRATION.383193 3920 Information not available 06/24/2022 What Is Your Level Of Caffeine Consumption? Occasional MIGRATION.092242 6691 Information not available 06/24/2022 How Much Tobacco Do You Chew? None MIGRATION.060555 9302 Information not available 06/24/2022 In The 14 Days Before Symptom Onset, Have You Had Close Contact With A Laboratory-confir med COVID-19 While That Case Was Ill? No MIGRATION.744944 4158 Information not available 06/24/2022 In The 14 Days Before Symptom Onset, Have You Had Close Contact With A Person Who Is Under Investigation For COVID-19 While That Person Was Ill? No MIGRATION.403572 7962 Information not available 06/24/2022 What Type Of Diet Are You Following? REGULAR MIGRATION.529764 5436 Information not available 06/24/2022 Which Illicit Or Recreational Drugs Have You Used? None MIGRATION.535635 3480 Information not available 06/24/2022 Do You Or Have You Ever Used E-cigarettes Or Vape? Never Used Electronic Cigarettes MIGRATION.233677 0080 Information not available 06/24/2022 What Is The Highest Grade Or Level Of School You Have Completed Or The Highest Degree You Have Received? 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 No MIGRATION.038473 0804 Information not available 06/24/2022 Are There Any Guns Present In Your Home? Yes MIGRATION.990497 8307 Information not available 06/24/2022 Do You Use Insect Repellent Routinely? No MIGRATION.009818 8642 Information not available 06/24/2022 Do You Have A Medical Power Of [employer]? No MIGRATION.495705 5162 Information not available 06/24/2022 Have You Ever Been Counseled For Unhealthy Alcohol Use? No MIGRATION.316179 6110 Information not available 06/24/2022 Do You Have Any Pets? No MIGRATION.941437 5023 Information not available 06/24/2022 What Is Your Relationship Status? Single MIGRATION.013787 6895 Information not available 06/24/2022 Do You Use Your Seat Belt Or Car Seat Routinely? Yes MIGRATION.960765 2720 Information not available 06/24/2022 Do You Have Smoke And Carbon Monoxide Detectors In Your Home? Yes MIGRATION.898141 2429 Information not available 06/24/2022 Are You Passively Exposed To Smoke? No MIGRATION.533865 1002 Information not available 06/24/2022 Do You Or Have You Ever Used Smokeless Tobacco? Never Used Smokeless Tobacco MIGRATION.130303 2644 Information not available 06/24/2022 Are There Any Smokers In Your House? No MIGRATION.232388 2701 Information not available 06/24/2022 How Much Tobacco Do You Smoke? No MIGRATION.319022 6363 Information not available 06/24/2022 Do You Participate In Social Media? No MIGRATION.519036 1345 Information not available 06/24/2022 Do You Feel Stressed (tense, Restless, Nervous, Or Anxious, Or Unable To Sleep At Night)? [id number] MIGRATION.162427 9051 Information not available 06/24/2022 Do You Use Any Illicit Or Recreational Drugs? No MIGRATION.138426 2907 Information not available 06/24/2022 Do You Use Sunscreen Routinely? Yes MIGRATION.792223 8092 Information not available 06/24/2022 Have You Recently Traveled Abroad? No MIGRATION.696733 1481 Information not available 06/24/2022 Are You Currently In School? No MIGRATION.166121 6567 Information not available 06/24/2022 Do You Have Any Dietary Restrictions? No MIGRATION.675191 5306 Information not available 06/24/2022 Sex: Unknown Functional Status Question Answer Note LastModified by Organizat ion Details LastModified Time What is your exercise level? Occasional MIGRATION.[id number] 26 Information not available 06/24/2022 Mental Status None recorded. Family History Relationship Description Onset Age of this Age Resolved Age Notes LastModified by Organization Details LastModified Time Paternal Aunt Malignant tumor of breast MIGRATION.[id number] Not available 06/24/2022 18:35:37 Maternal Grandfather Malignant tumor of colon MIGRATION.[id number] Not available 06/24/2022 18:35:37 Notes:paternal great-grandmo ther Medical History Condition Response ANXIETY DISORDER Y DEPRESSION (INCLUDING POST ) Y Gynecological History Statement/Question Response Menses Monthly Y Current Control Method BCPs Date of LMP 07/28/2022 Breast Problems no Discharge no Obstetrics History GPAL:G 0 P 0 0 0 0 Immunizations Vaccine Type Date Status Note Provider Nam e and Address Organization Details Recorded Time SARS-COV-2 (COVID-19) vaccine, UNSPECIFIED 1 completed Not Available [facility] 06/24/2022 18:37:30 SARS-COV-2 (COVID-19) vaccine, UNSPECIFIED 1 completed Not Available [facility] 06/24/2022 18:37:30 Influenza, split virus, quadrivalent, PF 1 completed Not Available [facility] 06/24/2022 18:37:30 HPV9 7 completed Not Available [facility] 06/24/2022 18:37:30 HPV, quadrivalent 7 completed Not Available [facility] 06/24/2022 18:37:30 Influenza, split virus, quadrivalent, PF 7 completed Not Available [facility] 06/24/2022 18:37:30 Past Encounters Encounter ID Performer Location Encounter Start Date Encounter Closed Date Diagnosis/Indication Diagnosis SNOMED-CT Code Diagnosis ICD10 Code [id number] [facility] [place] [address] [place] [address] 10/01/2020 00:00:00 10/01/2020 11:33:19 [id number] [facility] [place] [address] [place] [address] 11/28/2020 00:00:00 11/28/2020 18:01:41 [id number] [facility] [place] [address] [place] [address] 08/06/2021 00:00:00 08/06/2021 19:29:11 [id number] [facility] [place] [address] [place] [address] 09/30/2021 00:00:00 09/30/2021 12:17:31 [id number] [facility] [place] [address] [place] [address] 02/12/2022 00:00:00 02/12/2022 20:12:30 [id number] [facility] [place] [address] [place] [address] 05/15/2022 00:00:00 05/15/2022 17:02:51 [id number] ROSANA Ga [facility] [place] [address] [place] [address] 08/04/2022 10:28:02 08/04/2022 12:42:56 Major depressive disorder 316867749 F32.9 Borderline personality disorder 17384771 F60.3 F33.9 [id number] Amna Wright MD [facility] [place] [address] [place] [address] 09/22/2022 15:10:51 09/22/2022 15:54:00 Health Concerns Section Related Observation LastModified by Organization Detai ls LastModified Time None Recorded Concern Status LastModified by Organization Details LastModified Time None Recorded Advance Directives Directive N: Payers Encounter Date Sequence Insurance Name Policy Number Policy Wilson Covered Member ID Wilson Member ID Guarantor Name 08/04/2022 1 [place] [id number] Arvind Stewart [id number] Shanique Stewart 09/22/2022 1 [place] [id number] Milo Minnie Stewart [id number] Shanique Stewart Notes Date Note Type Note Provider Name and Address Organization Details Recorded Time 08/04/2022 text/html 1. Pt in office for f/u on mental health concerns. Pt states she feels like the venlafaxine isn't really helping as much anymore. Pt states she is seeing counselor once/week. Pt denies any SI/HI at this time. Pt states she is taking Effexor and Abilify as directed. Francisco Tovar, [employer] [address] [facility], [facility] [address], [place], [address], [facility] 08/04/2022 19:27:19 OBGyn Episode No OBEpisode recorded.
--- OUTSIDE RECORDS SUMMARY | 2024-04-24 21:43 | XMS_ITS | Data Portability ---
Author Organization [facility], ADMIN Address [address] [place] [phone] Assessment No assessment recorded. Plan of Treatment Reminders Order Date Submit Date Provider Last Modified By Organization Details Last Modified Time Details Appointments Annual 15 2024 01:00P Myranda Rodriguez MD Not available Not available Not available Lab pap, IG + reflex HPV (16+18+45 ) 2023 024 [facility]), [address] [place] [address], [id number], 03/15/2024 09:35:42 RPR (rapid plasma reagin), serum 2023 024 [facility]), [address] [place] [address], [id number], 03/08/2024 08:14:47 HIV 1 + 2, meaningfu l use set 2023 024 [facility]), [address] [place] [address], [id number], 03/08/2024 08:14:48 HBsAg (hepatiti s B surface Ag), EIA, serum 2023 024 [facility]), [address] [place] [address], [id number], 03/08/2024 08:14:49 chlamydia trachomat is + neisseria gonorrhoe ae + trichomon as vaginalis rRNA panel, FRANK+probe 2023 024 NATALIE [facility] ([place]), [address] [facility], [place], [address], 03/08/2024 21:07:21 Hepatitis C IgG Ab, qual, serum 2023 024 [place] [facility] ([place]), [address] [facility], [place], [address], 03/08/2024 08:14:48 Referral None recorded. Procedures None recorded. Surgeries None recorded. Imaging None recorded. Medication Orders None recorded. Patient TargetsNo targets recorded. Patient Instructions Encounter Date Encounter Id Patient Instructions Last Modified By Organization Details Last Modified Time 03/07/2024 [id number] specimen collection & handling* [email or web address] Not available 03/07/2024 17:00:14 You may find the following electronic resources helpful. Contraception: [email or web address] [place]women-health/f aqs/-control STD screening and prevention: [email or web address] /women-health/f aqs/pdw-un-vjjkptb -stis [email or web address] Not available 03/07/2024 16:46:02 Discussed screening for [...] voiced understanding and all questions were addressed [email or web address] Not available 03/07/2024 16:47:01 Reason for Referral None Reported. Results Created Date Observation Date Name Description Value Unit Range Abnormal Flag Note LastModifiedBy Organization Detail LastModifiedTime 03/07/2003/08/2024 RPR, RFX QN RPR/C ONFIR M TP RPR Non Reacti ve non reacti ve Not Available [facility] ([facility]) [address] [facility], [place], [address], 03/08/2024 08:14:47 03/07/20 24 03/08/2024 HIV AB/P2 4 AG WITH REFLE X HIV Ab/P24 Ag screen Non Reacti ve non reacti ve HIV-1 /HIV- 2 antib odies and HIV-1 p24 antig en were NOT detec cameron. There is no labor atory evide nce of HIV infec tion. HIV Negat edwardo Not Available [facility] ([facility]) [address] [place], [address], 03/08/2024 08:14:48 03/07/20 24 03/08/2024 HCV ANTIB KAR hep C virus Ab Non Reacti ve non reacti ve HCV antib kar alone does not diffe renti ate betwe en previ ously resol cheryl infec tion and activ e infec tion. Equiv ocal and React edwardo HCV antib kar resul ts shoul d be follo wed up with an HCV RNA test to suppo rt the diagn osis of activ e HCV infec tion. Not Available [facility] ([facility]) [address] [place], [address], 03/08/2024 08:14:48 03/07/20 24 03/08/2024 HBSAG SCREE N HBsAg screen Negati ve negati ve Not Available [facility] ([facility]) [address] [place], [address], 03/08/2024 08:14:49 03/07/20 24 03/08/2024 CT, NG, TRICH VAG BY FRANK chlamydia by FRANK Negati ve negati ve Not Available [facility] ([facility]) [address] [place], [address], 03/08/2024 21:07:21 03/07/2003/08/2024 CT, NG, TRICH VAG BY FRANK gonococcus by FRANK Negati ve negati ve Not Available [facility] ([facility]) [address] [place], [address], 03/08/2024 21:07:21 03/07/20 24 03/08/2024 CT, NG, TRICH VAG BY FRANK trich vag by FRANK Negati ve negati ve Not Available [facility] ([facility]) [address] [facility], [place], [address], 03/08/2024 21:07:21 03/07/20 24 03/15/2024 IGP,R FX APT HPV ASCU, 16/18 ,45 diagnosis: Kenia carroll NEGYVAN EDWARDO FOR INTRA EPITH ELIAL LESIO N OR PENELOPE SORIANO . Not Available [facility] ([facility]) [address] [place], [address], 03/15/2024 09:35:42 03/07/20 24 03/15/2024 IGP,R FX APT HPV ASCU, 16/18 ,45 specimen adequacy: Kenia carroll Satis facto ry for evalu ation . Endoc ervic al and/o r squam ous metap lasti c cells (endo cervi norm compo nent) are prese nt. Not Available [facility] ([facility]) [address] [place], [address], 03/15/2024 09:35:42 03/07/20 24 03/15/2024 IGP,R FX APT HPV ASCU, 16/18 ,45 clinician provided ICD10: Kenia carroll Z01.4 19 Not Available [facility] ([facility]) [address] [place], [address], 03/15/2024 09:35:42 03/07/20 24 03/15/2024 IGP,R FX APT HPV ASCU, 16/18 ,45 performed by: Arthur Mckeon (ASCP ) Not Available [facility] ([facility]) [address] [place], [address], 03/15/2024 09:35:42 03/07/20 24 03/15/2024 IGP,R FX APT HPV ASCU, 16/18 ,45 . . Not Available [facility] ([facility]) [address] [place], [address], 03/15/2024 09:35:42 03/07/20 24 03/15/2024 IGP,R FX APT HPV ASCU, 16/18 ,45 note: Commen t The Pap smear is a scree tanya test desig chantal to aid in the detec tion of manan ligna nt and malig nant condi tions of the uteri ne cervi x. It is not a diagn ostic proce dure and shoul d not be used as the sole means of detec ting cervi norm cance r. Both false -posi tive and false -nega tive repor ts do occur . Not Available [facility] ([facility]) [address] [place], [address], 03/15/2024 09:35:42 03/07/20 24 03/15/2024 IGP,R FX APT HPV ASCU, 16/18 ,45 test methodology: Commen t This liqui d based ThinP rep(R ) pap test was scree chantal with the use of an image guide d systlio m. Not Available [facility] ([facility]) [address] [place], [address], 03/15/2024 09:35:42 03/07/20 24 03/15/2024 IGP,R FX APT HPV ASCU, 16/18 ,45 . Commen t The HPV DNA refle x crite joshua were not met with this speci men resul t there fore, no HPV testi ng was perfo rmed. Not Available [facility] ([facility]) [address] [place], [address], 03/15/2024 09:35:42 Result Notes None recorded. Problems No Known Problems Medical Equipment None Reported. Allergies No known drug allergies Medications Not known to be on any medication Vitals Date Recorded Body height Body mass index (BMI) Body weight Systolic blood pressure Diastolic blood pressure Provider Name and Address Organization Details Last Updated DateTime 03/07/2024 157.48 cm 27.7 kg/m2 49682.88 g 114 mm[Hg] 68 mm[Hg] LUÍS ALNOZO [facility] 16:17:48 Social History Question Answer Notes LastModified by [address] Details LastModified Time Tobacco Smoking Status Never Smoker LUÍS ROSADO [facility] 03/07/2024 16:10:08 Do You Have An Advance Directive? No [email or web address] Information not available 03/07/2024 What Is Your Level Of Alcohol Consumption? Occasional Information not available 03/07/2024 If You Are , What Was Your Level Of Alcohol Consumption Prior To ? None Information not available 03/07/2024 How Many Years Have You Consumed Alcohol? 5 [email or web address] Information not available 03/07/2024 What Is Your Level Of Caffeine Consumption? Occasional [email or web address] Information not available 03/07/2024 Are You Currently Employed? Yes Information not available 03/07/2024 What Type Of Diet Are You Following? REGULAR [email or web address] Information not available 03/07/2024 How Many Years Have You Used Illicit Or Recreational Drugs? 0 Information not available 03/07/2024 What Was The Date Of Your Most Recent Tobacco Screening? 03/07/2024 [email or web address] Information not available 03/07/2024 What Is Your Relationship Status? Single Information not available 03/07/2024 Do You Use Any Illicit Or Recreational Drugs? No [email or web address] Information not available 03/07/2024 Has Tobacco Cessation Counseling Been Provided? No [email or web address] Information not available 03/07/2024 Do You Or Have You Ever Used Any Other Forms Of Tobacco Or Nicotine? No [email or web address] Information not available 03/07/2024 Sex: Unknown Functional Status Question Answer Note LastModified by Organizat ion Details LastModified Time What is your exercise level? Occasional [email or web address] Information not available 03/07/2024 Mental Status None recorded. Family History Relationship Description Onset Age of this Age Resolved Age Notes LastModified by Organization Details LastModified Time Father No current problems or disability Not available 03/07 16:12:27 Mother No current problems or disability [email or web address] Not available 03/07 16:12:27 Medical History Condition [...] Details Recorded Time HPV9 7 completed LUÍS ROSADO [place], [place] [facility] 03/07/2024 16:09:51 COVID-19, mRNA, LNP-S, PF, 30 mcg/0.3 mL dose 1 completed LUÍS ROSADO [place] [facility] 03/07/2024 16:09:51 COVID-19, mRNA, LNP-S, PF, 30 mcg/0.3 mL dose 1 completed LUÍS ROSADO [place] [facility] 03/07/2024 16:09:51 Tdap 3 completed LUÍS ROSADO [place] [facility] 03/07/2024 16:09:51 Influenza, split virus, trivalent, preservative 3 completed LUÍS ALONZO [place] [facility] 03/07/2024 16:09:51 HPV, quadrivalent 7 completed LUÍS ALONZO [place] [facility] 03/07/2024 16:09:51 Influenza, split virus, quadrivalent, PF 1 completed LUÍS ALONZO [place] [facility] 03/07/2024 16:09:51 Influenza, split virus, quadrivalent, PF 7 completed LUÍS ROSADO [place] [facility] 03/07/2024 16:09:51 Past Encounters Encounter ID Performer Location Encounter Start Date Encounter Closed Date Diagnosis/Indication Diagnosis SNOMED-CT Code Diagnosis ICD10 Code [id number] Myranda Harden MD [address] [place] [phone] 03/07/2024 16:06:04 03/08/2024 12:19:33 Gynecologic examination 26697093 Z01.419 Human jewell lloma virus screening 311820141 Z11.51 Venereal d isease screening 013504494 Z11.3 Health Concerns Section Related Observation LastModified by Organization Detai ls LastModified Time None Recorded Concern Status LastModified by Organization Details LastModified Time None Recorded Advance Directives Directive N: Payers Encounter Date Sequence Insurance Name Policy Number Policy Wilson Covered Member ID Wilson Member ID Guarantor Name 03/07/2024 1 [facility] ([place] [id number] K Milo Stewart [id number] Shanique Stewart Notes Date Note Type Note Provider Name and Address Organization Details Recorded Time 03/07/2024 text/html [facility] Annual Well-Women Visit Age 21-29Reported bypatient.Current Medical History:no active medical problems; no recent surgeries or hospitalizations Relevant Family History:no family history of breast cancer; no family history of ovarian cancer; no family history of uterine cancer; no family history of colon cancer; no family history of blood clots/DVT Last Pap smear:last Pap smear was normal Risk factors for cervical cancer ([facility]) Z91.89:5 or more lifetime sexual partners; total 15 partners Medical risk factors:no historical risk factors Contraceptive Method:Current Method Used: condoms Sexually Active:Yes: new partner STI Screen:due;requests STI testing because of Condom Use:Yes Menstrual cycle:normal menstrual cycle and flow 23 y/o G0 LMP 03/03/24 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 Gut Carrier offered per [facility] policy. Gut Carrier was{{ACCEPTED DECLINED *}}.Reason For Declination: {{Pt only wants provider in exam room Pt does not feel the need for a director style*}} Myranda Harden MD [address] [facility] [address], [place], [address], [facility] 03/07/2024 16:56:58 OBGyn Episode No OBEpisode recorded.
== END 2024-04-17 08:47 | disposition home or self-care (01) ==
PROVIDERS: PCP Family Medicine; Visit Provider Podiatrist Foot & Ankle Surgery
DX: B35.1 Tinea unguium (principal)
CPT/HCPCS: 36415; 84450; 84460